=== PATIENT | female | born 1955 | race Caucasian/White ===

== ENCOUNTER 2016-07-31 00:05 | Inpatient (IN) | payer BC, OTHER ==
[~2016-07-31] VITALS: Ht 160 cm; Wt 45.7 kg
[2016-07-31] VITALS (13 sets, daily range): BP systolic 103–140; BP diastolic 74–89
--- NOTE | 2016-07-31 04:45 | ED CLINICAL REPORT ---
Clinical Report - Physicians/Mid Levels [facility] [address] [place] [place] [address] 07/31/2016 0:06 Patient: SETH HERCULES Time Seen: 00:27; initial patient contact. Arrived- By private vehicle. Historian- patient. HISTORY OF PRESENT ILLNESS Chief Complaint: ABDOMINAL PAIN. At its maximum, severity described as moderate. When seen in the E.D., severity described as moderate. Modifying factors. Not worsened by anything. Not relieved by anything. It is described as "pain" and it is described as located in the suprapubic area and radiating to the abdomen. This started yesterday and is still present. It was gradual in onset and has been constant. The patient has had nausea, loss of appetite and vomiting. No diarrhea. Similar symptoms previously: None. Recent medical care: Not recently seen/assessed. REVIEW OF SYSTEMS No constipation, black stools, hematemesis, bloody stools or fever. No chest pain, difficulty breathing or chills. She has had difficulty with urination (Chronic). All systems otherwise negative, except as recorded above. PAST HISTORY Corneal Foreign Body. Immunizations. Weight loss from "bacterial site in lung". Head Injury. ADDITIONAL SURGERIES: Colon resection. Medications: Amitriptyline HCl Oral 50 mg, 3 tabs, at bedtime. Benadryl Oral 25 mg, as needed, allergies. ClonazePAM Oral 1 mg, 4x a day. Potassium Chloride Oral. Allergies: No Known Drug Allergy. SOCIAL HISTORY Current every day smoker. Heavy alcohol use. Patient is a longstanding alcoholic. No drug use. ADDITIONAL NOTES The nursing notes have been reviewed. PHYSICAL EXAM Vital Signs: 07/31/2016 00:15 BP: 103/64. HR: 104. RR: 18. O2 saturation: 96%. Temp: 97.7 F. Pain level now: 9/10. Have been reviewed. Blood pressure normal. Tachycardic. Respiratory rate normal. Temperature normal. Oxygen saturation normal. Appearance: Alert. No acute distress. Eyes: Moderately pale conjunctivae. ENT: Dry mucous membranes present. CVS: Tachycardia. Heart sounds normal. Rhythm normal. Respiratory: No respiratory distress. Breath sounds normal. Abdomen: Moderate tenderness diffusely with guarding and rebound tenderness present. No Tejada's, obturator or psoas sign present. Bowel sounds normal. No organomegaly. No mass. Distention with tenderness to palpation. Not soft. Back: Normal inspection. No CVA tenderness. Rectal: Rectal exam normal and nontender. Stool heme negative; hemoccult quality control tech raw materials check passed. (POC test reference range: negative). (Female RN present for exam). Skin: Poor skin turgor. Moderate pallor. Extremities: Extremities exhibit normal ROM. No lower extremity edema. LABS, X-RAYS, AND EKG EKG: EKG time: (0506). No acute ischemia. Narrow-complex tachycardia (102 ventricular rate). Normal P waves. Normal CAREY. Normal QRS complex. Normal axis. Normal ST and T waves, QT and QTc. Prior EKG unavailable. The study has been interpreted contemporaneously by me. The study has been independently viewed by me. The EKG appears to be a good tracing. Interpretation time: 0506. Abdominal CT: Small amt of pneumpperitoneum concerning for perforated viscus. Moderate ascites w/ enhancement concerning for perotinitis, no abscess visualized. mult segments of mildly dilated small bowel w/ wall thickening. Abdominal CT performed with IV contrast. The study was independently viewed by me, interpreted by the radiologist and discussed with the radiologist. Interpretation time: 03:49. Laboratory Tests: UA-Culture if indicated: (LEXI: 07/31/2016 00:28) ( MsgRcvd 07/31/2016 01:08) Final results Test Result Flag Units (Reference) URINE COLOR YELLOW URINE APPEARANCE CLEAR URINE GLUCOSE NEGATIVE (NEGATIVE) URINE BILIRUBIN NEGATIVE (NEGATIVE) URINE KETONE NEGATIVE (NEGATIVE) URINE SPECIFIC GRAVITY <= 1.005 L (1.010-1.030) URINE PH 8.5 H (5.0-8.0) URINE PROTEIN TRACE (NEGATIVE) URINE UROBILINOGEN 1.0 EU/dL (0.2-1.0) URINE NITRITE NEGATIVE (NEGATIVE) URINE BLOOD NEGATIVE (NEGATIVE) URINE LEUK ESTERASE NEGATIVE (NEGATIVE) URINE RBC 0-1 rbc/hpf (0-1) URINE WBC 0-1 wbc/hpf (0-1) URINE EPITHELIAL CELLS 1-3 EPI/hpf (0-5) URINE BACTERIA NONE SEEN (NONE SEEN) URINE COMMENT CULT NOT INDICATED URINE CULTURES ARE SET-UP BASED ON THE FOLLOWING CRITERIA:POSITIVE NITRITEPOSITIVE LEUKOCYTE ESTERASEGREATER THAN 10 WHITE BLOOD CELLSMODERATE (2+) OR GREATER BACTERIA [id number]: (LEXI: 07/31/2016 00:27) ( [facility] 07/31/2016 03:30) Final results Test Result Flag Units (Reference) ABSOLUTE NEUTROPHIL COUNT 1 /mm3 CBC w Diff: (LEXI: 07/31/2016 00:27) ( [facility] 07/31/2016 01:58) Final results Test Result Flag Units (Reference) WHITE BLOOD COUNT 1.2 *L K/uL (4.5-11.5) CRITICAL RESULTS CALLEDCalled to [facility] 07/31/16 0101Were 2 patient identifiers used? YWas the result read back? Y RED BLOOD COUNT 4.50 M/uL (4.00-5.20) HEMOGLOBIN 14.2 gm/dL (12.0-16.0) HEMATOCRIT 41.5 % (36.0-46.0) MEAN CELL VOLUME 92 fL (80-100) MEAN CORPUSCULAR HGB 32 pg (26-34) MEAN CORPUSCULAR HGB CONC 34 g/dL (31-37) RED CELL DISTRIBUTION WIDTH 19.3 H % (11.6-14.8) PLATELET COUNT 185 K/uL (150-400) POLY % 69 % (50-75) BAND % 0 % (0-8) LYMPH 28 % (25-40) MONO 3 % (3-14) EOSINOPHIL % 0 % (0-4) BASOPHIL % 0 % (0-2) METAMYELOCYTE % 0 % (0-1) MYELOCYTE 0 % (0-1) OTHER CELL TYPE 0 [id number]: (LEXI: 07/31/2016 00:27) ( [facility] 07/31/2016 01:22) Final results Test Result Flag Units (Reference) D-DIMER QUANTITATIVE 6.35 *H ug/mLFEU (0.27-0.52) CRITICAL RESULTS CALLEDCalled to [facility] 07/31/16 0122Were 2 patient identifiers used? YWas the result read back? YThe primary value of this quantitative assay relates toits negative predictive value (i.e. exclusion) of pulmonaryembolism/deep vein thrombosis/DIC.Elevated levels of d-dimer may also occur with:, age, cancer, inflammation, liver disease,post-op, infection, hematoma, coronary disease, peripheralarteriopathy, bleeding disorders and thrombolytic treatment.Results should be correlated with other clinical andradiological data.Testing Methodology: Latex Immunoassay PT with INR: (LEXI: 07/31/2016 00:27) ( [facility] 07/31/2016 00:54) Final results Test Result Flag Units (Reference) INR 1.1 (0.8-1.2) Low Intensity Therapy: INR 1.5-2.0 PT range 18.5-23.1Mod.Intensity Therapy: INR 2.0-3.0 PT range 23.1-31.5High Intensity Therapy: INR 2.5-3.5 PT range 27.4-35.5High Intensity Therapy 2: INR 3.0-4.0 PT range 31.5-39.3 APTT 32 SECONDS (24-34) [id number]: (LEXI: 07/31/2016 04:00) ( [facility] 07/31/2016 05:20) Final results Test Result Flag Units (Reference) LACTIC ACID SEPSIS PROTOCOL 4.4 H mmol/L (0.4-2.0) CRITICAL RESULTS CALLEDCalled to 07/31/16 0520Were 2 patient identifiers used? YWas the result read back? Y [id number]: (LEXI: 07/31/2016 04:10) ( [facility] 07/31/2016 05:06) Final results Test Result Flag Units (Reference) PROCALCITONIN 3.9 H ng/mL (0-0.5) PCT Concentration: Interpretation : Risk/option for action PCT <=0.5 ng/mL : Systemic : Low risk forinfection(sepsis): progression to severeis not likely. : systemic infection.Local bacterial : CAUTION-PCT levelsinfection is : below 0.5 ng/mL do notpossible. : exclude an infection,because localizedinfections (withoutsystemic signs) may beassociated with suchlow levels. If PCT ismeasured very earlyafter a bacterialchallenge (usually <6hours), these valuesmay still be low. Inthis case PCT shouldbe re-assessed 6-24hours later. PCT >0.5 and : Systemic infection: Moderate risk for<= 2 ng/mL : (sepsis) is : progression to severepossible, but : systemic infection.other conditions : The patient should beare known to : closely monitoredelevate PCT. : both clinically andby re-assessing PCTwithin 6-24 hours. PCT > 2 ng/mL : Systemic infection: High risk for(sepsis) is likely: progression to severeunless other : systemic infection.causes are known. : PCT >= 10 ng/mL : Important systemic: High likelihood ofinflammatory : severe sepsis orresponse, almost : septic shock.exclusively due to:severe bacterial :sepsis or septic :shock. : Ethyl Alcohol: (LEXI: 07/31/2016 00:27) ( [facility] 07/31/2016 01:16) Final results Test Result Flag Units (Reference) ETHYL ALCOHOL <3 L mg/dL (3-10) Urine Drug Screen: (LEXI: 07/31/2016 00:27) ( [facility] 07/31/2016 01:17) Final results Test Result Flag Units (Reference) AMPHETAMINE/METHAMPHETAMINE NEGATIVE (NEGATIVE) BARBITURATE NEGATIVE (NEGATIVE) BENZODIAZEPINE NEGATIVE (NEGATIVE) CANNABINOID NEGATIVE (NEGATIVE) COCAINE NEGATIVE (NEGATIVE) ECSTASY NEGATIVE (NEGATIVE) METHADONE NEGATIVE (NEGATIVE) OPIATE NEGATIVE (NEGATIVE) The urine drug screen is a qualitative screening test fordrug overdose and abuse. All screen results should beconsidered as presumptive.Drugs screened for are as follows:BenzodiazepinesCocaineAmphetamines/MetamphetaminesTHC (Tetrahydrocannabinol)OpiatesBarbituratesEcstasyMethadonePositive results are unconfirmed. For confirmation, notifythe lab for the specimen to be sent to the reference lab.All confirmations must be performed by a differentmethodology.The ingestion of natural herbal and plant productscontaining Ephedra/Ephedra metabolites can produce in urineone or more substances capable of cross reacting withamphetamine/methamphetamine immunoassays. These testsprovide a preliminary result only. A more specificalternative chemical method must be used to obtain aconfirmed analytical result. Ammonia Level: (LEXI: 07/31/2016 00:27) ( [facility] 07/31/2016 01:24) Final results Test Result Flag Units (Reference) AMMONIA 22 umol/L (11-32) CMP: (LEXI: 07/31/2016 00:27) ( [facility] 07/31/2016 01:03) Final results Test Result Flag Units (Reference) GLUCOSE 139 H mg/dL (70-110) BUN 11 mg/dL (7-18) CREATININE 1.4 H mg/dL (0.6-1.3) Estimated GFR 40.77 mL/min Estimated GFR- 49.41 mL/min Note: Persistent reduction over 3 months in eGFR<60 mL/min/1.73 m2 defines CKD. Patients with eGFR values>=60 mL/min/1.73 m2 may also have CKD if evidence ofpersistent proteinuria. Additional information may be foundat [email or web address]. SODIUM 132 L mmol/L (136-145) POTASSIUM 2.4 *L mmol/L (3.5-5.1) CRITICAL RESULTS CALLEDCalled to [facility] 07/31/16 0102Were 2 patient identifiers used? YWas the result read back? Y CHLORIDE 91 L mmol/L (98-107) CARBON DIOXIDE 29 mmol/L (21-32) CALCIUM 8.1 L mg/dL (8.5-10.1) TOTAL PROTEIN 6.9 g/dL (6.4-8.2) ALBUMIN 3.1 L g/dL (3.3-5.0) BILIRUBIN, TOTAL 0.6 mg/dL (0.0-1.0) ALKALINE PHOSPHATASE 43 L U/L (46-116) AST (SGOT) 43 H U/L (15-37) ALT (SGPT) 29 U/L (12-78) MAGNESIUM 1.4 L mg/dL (1.8-2.4) LIPASE 56 L U/L (73-393) AMYLASE 73 U/L (25-115) . PROGRESS AND PROCEDURES Critical care performed (75 minutes). Time is exclusive of separately billable procedures. Time includes: direct patient care, patient reassessment, coordination of patient care, interpretation of data (laboratory data), review of patient's medical records, medical consultation, family consultation regarding treatment decisions and documentation of patient care. The patient required critical care due to the acute impairment of vital organ systems (immunologic and hematologic) and a high probability of life threatening deterioration. Multiple urgent interventions were required to prevent life threatening deterioration. Discussed case with health care provider (call returned 04:20 Dr. Jordan, admit to hospitalist and he will take to the OR). Discussed case with hospitalist, (call returned 04:37 Dr. Mercer to admit to ICU.). CLINICAL IMPRESSION Generalized acute peritonitis (unknown etiology). Hypokalemia. Moderate hypomagnesemia. Leukocytopenia. (Pneumoperitoneum). (Electronically signed by Oscar Navarrete Dr. 07/31/2016 7:16)
--- NOTE | 2016-07-31 04:45 | ED CLINICAL REPORT ---
Clinical Report - Physicians/Mid Levels [facility] [address] [place] [place] [address] 07/31/2016 0:06 Patient: SETH HERCULES Time Seen: 00:27; initial patient contact. Arrived- By private vehicle. Historian- patient. HISTORY OF PRESENT ILLNESS Chief Complaint: ABDOMINAL PAIN. At its maximum, severity described as moderate. When seen in the E.D., severity described as moderate. Modifying factors. Not worsened by anything. Not relieved by anything. It is described as "pain" and it is described as located in the suprapubic area and radiating to the abdomen. This started yesterday and is still present. It was gradual in onset and has been constant. The patient has had nausea, loss of appetite and vomiting. No diarrhea. Similar symptoms previously: None. Recent medical care: Not recently seen/assessed. REVIEW OF SYSTEMS No constipation, black stools, hematemesis, bloody stools or fever. No chest pain, difficulty breathing or chills. She has had difficulty with urination (Chronic). All systems otherwise negative, except as recorded above. PAST HISTORY Corneal Foreign Body. Immunizations. Weight loss from "bacterial site in lung". Head Injury. ADDITIONAL SURGERIES: Colon resection. Medications: Amitriptyline HCl Oral 50 mg, 3 tabs, at bedtime. Benadryl Oral 25 mg, as needed, allergies. ClonazePAM Oral 1 mg, 4x a day. Potassium Chloride Oral. Allergies: No Known Drug Allergy. SOCIAL HISTORY Current every day smoker. Heavy alcohol use. Patient is a longstanding alcoholic. No drug use. ADDITIONAL NOTES The nursing notes have been reviewed. PHYSICAL EXAM Vital Signs: 07/31/2016 00:15 BP: 103/64. HR: 104. RR: 18. O2 saturation: 96%. Temp: 97.7 F. Pain level now: 9/10. Have been reviewed. Blood pressure normal. Tachycardic. Respiratory rate normal. Temperature normal. Oxygen saturation normal. Appearance: Alert. No acute distress. Eyes: Moderately pale conjunctivae. ENT: Dry mucous membranes present. CVS: Tachycardia. Heart sounds normal. Rhythm normal. Respiratory: No respiratory distress. Breath sounds normal. Abdomen: Moderate tenderness diffusely with guarding and rebound tenderness present. No Tejada's, obturator or psoas sign present. Bowel sounds normal. No organomegaly. No mass. Distention with tenderness to palpation. Not soft. Back: Normal inspection. No CVA tenderness. Rectal: Rectal exam normal and nontender. Stool heme negative; hemoccult quality control checker check passed. (POC test reference range: negative). (Female RN present for exam). Skin: Poor skin turgor. Moderate pallor. Extremities: Extremities exhibit normal ROM. No lower extremity edema. LABS, X-RAYS, AND EKG EKG: EKG time: (0506). No acute ischemia. Narrow-complex tachycardia (102 ventricular rate). Normal P waves. Normal CAREY. Normal QRS complex. Normal axis. Normal ST and T waves, QT and QTc. Prior EKG unavailable. The study has been interpreted contemporaneously by me. The study has been independently viewed by me. The EKG appears to be a good tracing. Interpretation time: 0506. Abdominal CT: Small amt of pneumpperitoneum concerning for perforated viscus. Moderate ascites w/ enhancement concerning for perotinitis, no abscess visualized. mult segments of mildly dilated small bowel w/ wall thickening. Abdominal CT performed with IV contrast. The study was independently viewed by me, interpreted by the radiologist and discussed with the radiologist. Interpretation time: 03:49. Laboratory Tests: UA-Culture if indicated: (LEXI: 07/31/2016 00:28) ( MsgRcvd 07/31/2016 01:08) Final results Test Result Flag Units (Reference) URINE COLOR YELLOW URINE APPEARANCE CLEAR URINE GLUCOSE NEGATIVE (NEGATIVE) URINE BILIRUBIN NEGATIVE (NEGATIVE) URINE KETONE NEGATIVE (NEGATIVE) URINE SPECIFIC GRAVITY <= 1.005 L (1.010-1.030) URINE PH 8.5 H (5.0-8.0) URINE PROTEIN TRACE (NEGATIVE) URINE UROBILINOGEN 1.0 EU/dL (0.2-1.0) URINE NITRITE NEGATIVE (NEGATIVE) URINE BLOOD NEGATIVE (NEGATIVE) URINE LEUK ESTERASE NEGATIVE (NEGATIVE) URINE RBC 0-1 rbc/hpf (0-1) URINE WBC 0-1 wbc/hpf (0-1) URINE EPITHELIAL CELLS 1-3 EPI/hpf (0-5) URINE BACTERIA NONE SEEN (NONE SEEN) URINE COMMENT CULT NOT INDICATED URINE CULTURES ARE SET-UP BASED ON THE FOLLOWING CRITERIA:POSITIVE NITRITEPOSITIVE LEUKOCYTE ESTERASEGREATER THAN 10 WHITE BLOOD CELLSMODERATE (2+) OR GREATER BACTERIA [id number]: (LEXI: 07/31/2016 00:27) ( [facility] 07/31/2016 03:30) Final results Test Result Flag Units (Reference) ABSOLUTE NEUTROPHIL COUNT 1 /mm3 CBC w Diff: (LEXI: 07/31/2016 00:27) ( [facility] 07/31/2016 01:58) Final results Test Result Flag Units (Reference) WHITE BLOOD COUNT 1.2 *L K/uL (4.5-11.5) CRITICAL RESULTS CALLEDCalled to [facility] 07/31/16 0101Were 2 patient identifiers used? YWas the result read back? Y RED BLOOD COUNT 4.50 M/uL (4.00-5.20) HEMOGLOBIN 14.2 gm/dL (12.0-16.0) HEMATOCRIT 41.5 % (36.0-46.0) MEAN CELL VOLUME 92 fL (80-100) MEAN CORPUSCULAR HGB 32 pg (26-34) MEAN CORPUSCULAR HGB CONC 34 g/dL (31-37) RED CELL DISTRIBUTION WIDTH 19.3 H % (11.6-14.8) PLATELET COUNT 185 K/uL (150-400) POLY % 69 % (50-75) BAND % 0 % (0-8) LYMPH 28 % (25-40) MONO 3 % (3-14) EOSINOPHIL % 0 % (0-4) BASOPHIL % 0 % (0-2) METAMYELOCYTE % 0 % (0-1) MYELOCYTE 0 % (0-1) OTHER CELL TYPE 0 [id number]: (LEXI: 07/31/2016 00:27) ( [facility] 07/31/2016 01:22) Final results Test Result Flag Units (Reference) D-DIMER QUANTITATIVE 6.35 *H ug/mLFEU (0.27-0.52) CRITICAL RESULTS CALLEDCalled to [facility] 07/31/16 0122Were 2 patient identifiers used? YWas the result read back? YThe primary value of this quantitative assay relates toits negative predictive value (i.e. exclusion) of pulmonaryembolism/deep vein thrombosis/DIC.Elevated levels of d-dimer may also occur with:, age, cancer, inflammation, liver disease,post-op, infection, hematoma, coronary disease, peripheralarteriopathy, bleeding disorders and thrombolytic treatment.Results should be correlated with other clinical andradiological data.Testing Methodology: Latex Immunoassay PT with INR: (LEXI: 07/31/2016 00:27) ( [facility] 07/31/2016 00:54) Final results Test Result Flag Units (Reference) INR 1.1 (0.8-1.2) Low Intensity Therapy: INR 1.5-2.0 PT range 18.5-23.1Mod.Intensity Therapy: INR 2.0-3.0 PT range 23.1-31.5High Intensity Therapy: INR 2.5-3.5 PT range 27.4-35.5High Intensity Therapy 2: INR 3.0-4.0 PT range 31.5-39.3 APTT 32 SECONDS (24-34) [id number]: (LEXI: 07/31/2016 04:00) ( [facility] 07/31/2016 05:20) Final results Test Result Flag Units (Reference) LACTIC ACID SEPSIS PROTOCOL 4.4 H mmol/L (0.4-2.0) CRITICAL RESULTS CALLEDCalled to 07/31/16 0520Were 2 patient identifiers used? YWas the result read back? Y [id number]: (LEXI: 07/31/2016 04:10) ( [facility] 07/31/2016 05:06) Final results Test Result Flag Units (Reference) PROCALCITONIN 3.9 H ng/mL (0-0.5) PCT Concentration: Interpretation : Risk/option for action PCT <=0.5 ng/mL : Systemic : Low risk forinfection(sepsis): progression to severeis not likely. : systemic infection.Local bacterial : CAUTION-PCT levelsinfection is : below 0.5 ng/mL do notpossible. : exclude an infection,because localizedinfections (withoutsystemic signs) may beassociated with suchlow levels. If PCT ismeasured very earlyafter a bacterialchallenge (usually <6hours), these valuesmay still be low. Inthis case PCT shouldbe re-assessed 6-24hours later. PCT >0.5 and : Systemic infection: Moderate risk for<= 2 ng/mL : (sepsis) is : progression to severepossible, but : systemic infection.other conditions : The patient should beare known to : closely monitoredelevate PCT. : both clinically andby re-assessing PCTwithin 6-24 hours. PCT > 2 ng/mL : Systemic infection: High risk for(sepsis) is likely: progression to severeunless other : systemic infection.causes are known. : PCT >= 10 ng/mL : Important systemic: High likelihood ofinflammatory : severe sepsis orresponse, almost : septic shock.exclusively due to:severe bacterial :sepsis or septic :shock. : Ethyl Alcohol: (LEXI: 07/31/2016 00:27) ( [facility] 07/31/2016 01:16) Final results Test Result Flag Units (Reference) ETHYL ALCOHOL <3 L mg/dL (3-10) Urine Drug Screen: (LEXI: 07/31/2016 00:27) ( [facility]17[facility] Final results Test Result Flag Units (Reference) AMPHETAMINE/METHAMPHETAMINE NEGATIVE (NEGATIVE) BARBITURATE NEGATIVE (NEGATIVE) BENZODIAZEPINE NEGATIVE (NEGATIVE) CANNABINOID NEGATIVE (NEGATIVE) COCAINE NEGATIVE (NEGATIVE) ECSTASY NEGATIVE (NEGATIVE) METHADONE NEGATIVE (NEGATIVE) OPIATE NEGATIVE (NEGATIVE) The urine drug screen is a qualitative screening test fordrug overdose and abuse. All screen results should beconsidered as presumptive.Drugs screened for are as follows:BenzodiazepinesCocaineAmphetamines/MetamphetaminesTHC (Tetrahydrocannabinol)OpiatesBarbituratesEcstasyMethadonePositive results are unconfirmed. For confirmation, notifythe lab for the specimen to be sent to the reference lab.All confirmations must be performed by a differentmethodology.The ingestion of natural herbal and plant productscontaining Ephedra/Ephedra metabolites can produce in urineone or more substances capable of cross reacting withamphetamine/methamphetamine immunoassays. These testsprovide a preliminary result only. A more specificalternative chemical method must be used to obtain aconfirmed analytical result. Ammonia Level: (LEXI: 07/31/2016 00:27) ( [facility] 07/31/2016 01:24) Final results Test Result Flag Units (Reference) AMMONIA 22 umol/L (11-32) CMP: (LEXI: 07/31/2016 00:27) ( [facility] 07/31/2016 01:03) Final results Test Result Flag Units (Reference) GLUCOSE 139 H mg/dL (70-110) BUN 11 mg/dL (7-18) CREATININE 1.4 H mg/dL (0.6-1.3) Estimated GFR 40.77 mL/min Estimated GFR- 49.41 mL/min Note: Persistent reduction over 3 months in eGFR<60 mL/min/1.73 m2 defines CKD. Patients with eGFR values>=60 mL/min/1.73 m2 may also have CKD if evidence ofpersistent proteinuria. Additional information may be foundat [email or web address]. SODIUM 132 L mmol/L (136-145) POTASSIUM 2.4 *L mmol/L (3.5-5.1) CRITICAL RESULTS CALLEDCalled to [facility] 07/31/16 0102Were 2 patient identifiers used? YWas the result read back? Y CHLORIDE 91 L mmol/L (98-107) CARBON DIOXIDE 29 mmol/L (21-32) CALCIUM 8.1 L mg/dL (8.5-10.1) TOTAL PROTEIN 6.9 g/dL (6.4-8.2) ALBUMIN 3.1 L g/dL (3.3-5.0) BILIRUBIN, TOTAL 0.6 mg/dL (0.0-1.0) ALKALINE PHOSPHATASE 43 L U/L (46-116) AST (SGOT) 43 H U/L (15-37) ALT (SGPT) 29 U/L (12-78) MAGNESIUM 1.4 L mg/dL (1.8-2.4) LIPASE 56 L U/L (73-393) AMYLASE 73 U/L (25-115) . PROGRESS AND PROCEDURES Critical care performed (75 minutes). Time is exclusive of separately billable procedures. Time includes: direct patient care, patient reassessment, coordination of patient care, interpretation of data (laboratory data), review of patient's medical records, medical consultation, family consultation regarding treatment decisions and documentation of patient care. The patient required critical care due to the acute impairment of vital organ systems (immunologic and hematologic) and a high probability of life threatening deterioration. Multiple urgent interventions were required to prevent life threatening deterioration. Discussed case with health care provider (call returned 04:20 Dr. Jordan, admit to hospitalist and he will take to the OR). Discussed case with hospitalist, (call returned 04:37 Dr. Mercer to admit to ICU.). CLINICAL IMPRESSION Generalized acute peritonitis (unknown etiology). Hypokalemia. Moderate hypomagnesemia. Leukocytopenia. (Pneumoperitoneum). (Electronically signed by Oscar Navarrete Dr. 07/31/2016 7:16)
--- NOTE | 2016-07-31 04:45 | ED ORDER SUMMARY ---
..... Patient: SETH HERCULES OrderSheet [facility] VisitID: [id number] [place] [address] 60y, F Registration Date/Time: 07/31/2016 ORDER SHEET Weight: 45.3 kg (stated) Allergies: No Known Drug Allergy GENERAL ORDERS: CBC w Diff Urgent (00:39 07/31/2016 Enoc Gaona) (Ack 0:45 AMcQuoid ER Tech1) (0:46 AMcQuoid ER Tech1) CMP Urgent (00:39 07/31/2016 Enoc Gaona) (Ack 0:45 AMcQuoid ER Tech1) (0:46 AMcQuoid ER Tech1) UA-Culture if indicated Urgent (00:07/31/2016 Enoc Gaona) (Ack 0:45 AMcQuoid ER Tech1) (0:52 CBradburn R.N.) PT with INR Urgent (00:39 07/31/2016 Enoc Gaona) (Ack 0:45 AMcQuoid ER Tech1) (0:46 AMcQuoid ER Tech1) PTT Urgent (00:39 07/31/2016 Enoc Gaona) (Ack 0:45 AMcQuoid ER Tech1) (0:46 AMcQuoid ER Tech1) Amylase Urgent (00:39 07/31/2016 Enoc Gaona) (Ack 0:45 AMcQuoid ER Tech1) (0:46 AMcQuoid ER Tech1) Lipase Urgent (00:07/31/2016 Enoc Gaona) (Ack 0:45 AMcQuoid ER Tech1) (0:46 AMcQuoid ER Tech1) Urine Drug Screen Urgent (00:39 07/31/2016 Enoc Gaona) (Ack 0:45 AMcQuoid ER Tech1) (0:52 CBradburn R.N.) Ammonia Level Urgent (00:39 07/31/2016 Enoc Gaona) (Ack 0:45 AMcQuoid ER Tech1) (0:46 AMcQuoid ER Tech1) D-Dimer Urgent (00:55 07/31/2016 Enoc Gaona) (0:58 AMcQuoid ER Tech1) Ethyl Alcohol Urgent (00:57 07/31/2016 Enoc Gaona) (Ack 0:58 AMcQuoid ER Tech1) (0:59 AMcQuoid ER Tech1) CTA Thorax/Abdomen/Pelvis (No) (12/10.4) Urgent (01:41 07/31/2016 Enoc Gaona) (Ack 1:56 AMcQuoid ER Tech1) (2:07 OCRINAradburn R.N.) - (Absolute neutrophil count) (03:19 07/31/2016 Enoc Gaona) (3:23 AMcQuoid ER Tech1) Blood Culture (No) (N/A) Urgent (03:41 07/31/2016 Enoc Gaona) (Ack 3:42 AMcQuoid ER Tech1) (4:28 CORINAradburn R.N.) Lactic Acid for Sepsis Protocol Urgent (03:41 07/31/2016 Enoc Gaona) (Ack 3:42 AMcQuoid ER Tech1) (4:28 CORINAradburn R.N.) PCT (Procalcitonin) Urgent (03:41 07/31/2016 Enoc Gaona) (Ack 3:42 AMcQuoid ER Tech1) (4:28 CORINAradburn R.N.) Type & Screen Urgent (04:49 07/31/2016 Enoc Gaona) (4:56 Lavon R.N.) EKG - ER Stat (04:49 07/31/2016 Enoc Gaona) (5:26 RKaruga) MEDICATION ORDERS: Potassium Chloride PO 20 meq (NOW) (01:13 07/31/2016 Enoc Gaona) (Ack 1:16 Maria Teresaburn R.N.) (2:00 Maria Teresaburn R.N.) - (Magnesium Oxide 400 mg PO x 1 now) (01:13 07/31/2016 Enoc Gaona) (Ack 1:16 Lavon R.N.) (2:07 CORINAradburn R.N.) IV FLUIDS: IV NS : initial bolus none -, then 1000 mL/hr for X1 (NOW) (00:38 07/31/2016 Enoc Gaona) (Ack 0:43 Odette R.N.) (0:53 Lavon R.N.) Potassium Chloride IV 20 meq/100mL (HIGH ALERT MEDICATION, NOW, Run no faster than 10 mEq/hr) (01:13 07/31/2016 Enoc Gaona) (Ack 1:16 Lavon Singh) (1:59 Lavon Singh) IV#2 NS with Normal Saline 1 Liter: initial bolus 1000 mL (1000 mL/hr), then 1000 mL/hr (NOW) (03:24 07/31/2016 Lavon Singh verbal order read back to Enoc Gaona) (3:26 Lavon Singh) Cefotaxime IV 2 gm/100mL (NOW) (04:00 07/31/2016 Enoc Gaona) (Cancelled: Physician Order4:49 Enoc Gaona) Metronidazole IV 500 mg/100mL (NOW) (04:00 07/31/2016 Enoc Gaona) (4:27 Lavon Singh) Cefepime IV 2 gm/50mL (NOW) (04:47 07/31/2016 Enoc Gaona) (5:28 Lavon Singh) IV NS : initial bolus none -, then 1000 mL/hr for X1 (NOW) (04:51 07/31/2016 Enoc Gaona) (4:55 Lavon Singh) ORDER SHEET NOTES: [Electronically signed by Dinorah Connelly R.N. (06:52 07/31/2016)] [Electronically signed by Oscar Navarrete Dr. (07:16 07/31/2016)] [Electronically locked/signed by Dinorah Connelly R.N. (06:52 07/31/2016)]
--- NOTE | 2016-07-31 04:45 | ED ORDER SUMMARY ---
..... Patient: SETH HERCULES OrderSheet [facility] VisitID: [id number] [place] [address] 60y, F Registration Date/Time: 07/31/2016 ORDER SHEET Weight: 45.3 kg (stated) Allergies: No Known Drug Allergy GENERAL ORDERS: CBC w Diff Urgent (00:39 07/31/2016 Enoc Gaona) (Ack 0:45 AMcQuoid ER Tech1) (0:46 AMcQuoid ER Tech1) CMP Urgent (00:39 07/31/2016 Enoc Gaona) (Ack 0:45 AMcQuoid ER Tech1) (0:46 AMcQuoid ER Tech1) UA-Culture if indicated Urgent (00:07/31/2016 Enoc Gaona) (Ack 0:45 AMcQuoid ER Tech1) (0:52 CBradburn R.N.) PT with INR Urgent (00:39 07/31/2016 Enoc Gaona) (Ack 0:45 AMcQuoid ER Tech1) (0:46 AMcQuoid ER Tech1) PTT Urgent (00:39 07/31/2016 Enoc Gaona) (Ack 0:45 AMcQuoid ER Tech1) (0:46 AMcQuoid ER Tech1) Amylase Urgent (00:39 07/31/2016 Enoc Gaona) (Ack 0:45 AMcQuoid ER Tech1) (0:46 AMcQuoid ER Tech1) Lipase Urgent (00:07/31/2016 Enoc Gaona) (Ack 0:45 AMcQuoid ER Tech1) (0:46 AMcQuoid ER Tech1) Urine Drug Screen Urgent (00:39 07/31/2016 Enoc Gaona) (Ack 0:45 AMcQuoid ER Tech1) (0:52 CBradburn R.N.) Ammonia Level Urgent (00:39 07/31/2016 Enoc Gaona) (Ack 0:45 AMcQuoid ER Tech1) (0:46 AMcQuoid ER Tech1) D-Dimer Urgent (00:55 07/31/2016 Enoc Gaona) (0:58 AMcQuoid ER Tech1) Ethyl Alcohol Urgent (00:57 07/31/2016 Enoc Gaona) (Ack 0:58 AMcQuoid ER Tech1) (0:59 AMcQuoid ER Tech1) CTA Thorax/Abdomen/Pelvis (No) (12/10.4) Urgent (01:41 07/31/2016 Enoc Gaona) (Ack 1:56 AMcQuoid ER Tech1) (2:07 CORINAradburn R.N.) - (Absolute neutrophil count) (03:19 07/31/2016 Enoc Gaona) (3:23 AMcQuoid ER Tech1) Blood Culture (No) (N/A) Urgent (03:41 07/31/2016 Enoc Gaona) (Ack 3:42 AMcQuoid ER Tech1) (4:28 CORINAradburn R.N.) Lactic Acid for Sepsis Protocol Urgent (03:41 07/31/2016 Enoc Gaona) (Ack 3:42 AMcQuoid ER Tech1) (4:28 CORINAradburn R.N.) PCT (Procalcitonin) Urgent (03:41 07/31/2016 Enoc Gaona) (Ack 3:42 AMcQuoid ER Tech1) (4:28 CORINAradburn R.N.) Type & Screen Urgent (04:49 07/31/2016 Enoc Gaona) (4:56 Lavon R.N.) EKG - ER Stat (04:49 07/31/2016 Enoc Gaona) (5:26 RKaruga) MEDICATION ORDERS: Potassium Chloride PO 20 meq (NOW) (01:13 07/31/2016 Enoc Gaona) (Ack 1:16 Maria Teresaburn R.N.) (2:00 Maria Teresaburn R.N.) - (Magnesium Oxide 400 mg PO x 1 now) (01:13 07/31/2016 Enoc Gaona) (Ack 1:16 Lavon R.N.) (2:07 CORINAradburn R.N.) IV FLUIDS: IV NS : initial bolus none -, then 1000 mL/hr for X1 (NOW) (00:38 07/31/2016 Enoc Gaona) (Ack 0:43 Odette R.N.) (0:53 Lavon R.N.) Potassium Chloride IV 20 meq/100mL (HIGH ALERT MEDICATION, NOW, Run no faster than 10 mEq/hr) (01:13 07/31/2016 Enoc Gaona) (Ack 1:16 Lavon Singh) (1:59 Lavon Singh) IV#2 NS with Normal Saline 1 Liter: initial bolus 1000 mL (1000 mL/hr), then 1000 mL/hr (NOW) (03:24 07/31/2016 Lavon Singh verbal order read back to Enoc Gaona) (3:26 Lavon Singh) Cefotaxime IV 2 gm/100mL (NOW) (04:00 07/31/2016 Enoc Gaona) (Cancelled: Physician Order4:49 Enoc Gaona) Metronidazole IV 500 mg/100mL (NOW) (04:00 07/31/2016 Enoc Gaona) (4:27 Lavon Singh) Cefepime IV 2 gm/50mL (NOW) (04:47 07/31/2016 Enoc Gaona) (5:28 Lavon Singh) IV NS : initial bolus none -, then 1000 mL/hr for X1 (NOW) (04:51 07/31/2016 Enoc Gaona) (4:55 Lavon Singh) ORDER SHEET NOTES: [Electronically signed by Dinorah Connelly R.N. (06:52 07/31/2016)] [Electronically signed by Oscar Navarrete Dr. (07:16 07/31/2016)] [Electronically locked/signed by Dinorah Connelly R.N. (06:52 07/31/2016)]
--- NOTE | 2016-07-31 04:45 | ED NURSING NOTES ---
Clinical Report - Nurses [facility] [address] [place] [address] 07/31/2016 0:06 Patient: SETH HERCULES TRIAGE Triage time 00:15. Acuity: LEVEL 3. Chief Complaint: ABDOMINAL PAIN and VOMITING. --00:24 Dinorah Connelly R.N. 00:15 07/31/16. BP: 103/64 taken on the left arm, while sitting. HR: 104 (regular and tachycardic). RR: 18 (regular and unlabored). O2 saturation: 96% on room air. Temp: 97.7 F (oral). Pain level now: 10/19. --00:24 Dinorah Connelly R.N. Weight: 45.3 kg stated. Height/Length: 63 inches Per Patient. BMI: 17.7. --00:15 Dinorah Connelly R.N. Medications Amitriptyline HCl Oral 50 mg, 3 tabs, at bedtime. Benadryl Oral 25 mg, as needed, allergies. ClonazePAM Oral 1 mg, 4x a day. Potassium Chloride Oral. --00:17 Dinorah Connelly R.N. The following entry was struck and corrected by Dinorah Connelly R.N., 00:18 (07/31/16) Reason for correction - other(correction). <<STRICKEN ENTRY-- Amitriptyline HCl Oral 50 mg, 2 tabs, at bedtime. --00:17 Dinorah Connelly R.N. --END STRIKE>>. Allergies No Known Drug Allergy. --00:17 Dinorah Connelly R.N. History Arrived by private vehicle. Historian: patient. Accompanied by family. Primary physician (anita). This started today. Onset. (this morning). ( pain all day started as suprapubic and now all over, pt reports vomited 1 time today. oral mucosa dry). Last oral intake by patient was lunch (/2 sandwich). PAST MEDICAL HX: Immunizations: up-to-date. SOCIAL HX: Light tobacco smoker (cigarette)- less than 1/2 a pack per day. Heavy alcohol use; consumes beer daily. Patient is a longstanding alcoholic. No drug use. No known contact with a sick individual. ABUSE ASSESSMENT: No report of abuse. SELF HARM ASSESSMENT: A self harm assessment was performed. The patient answered "no" to the question "Have you recently felt down, depressed, or hopeless?", "Have you noticed less interest or pleasure in doing things?", "Do you have thoughts of harming or killing yourself?", "Are you here because you tried to hurt yourself?", "Have you ever tried to hurt yourself before today?", "Have you recently had thoughts about harming or killing others?" and "Do you have any dangerous items in your possession?". FALL RISK ASSESSMENT: Fall risk assessment completed. No fall risk identified. NUTRITIONAL RISK ASSESSMENT: The nutritional risk assessment revealed no deficiencies. FUNCTIONAL ASSESSMENT: Functional assessment: no impairments noted. LEARNING NEEDS ASSESSMENT: The learning needs assessment revealed no barriers. SKIN INTEGRITY ASSESSMENT: Skin integrity risk assessment completed. No skin integrity risk identified. --00:24 Dinorah Connelly R.N. PROBLEMS: Corneal Foreign Body. Immunizations. Weight loss from "bacterial site in lung". Head Injury. --00:18 Dinorah Connelly R.N. ADDITIONAL SURGERIES: Colon resection. --00:18 Dinorah Connelly R.N. Interventions ID band on patient. To treatment room. --00:24 Dinorah Connelly R.N. PHYSICAL ASSESSMENT To room via wheelchair. GENERAL / NEURO / PSYCH: Alert. Appears anxious. The patient is disoriented to person, place and situation. ( normal baseline). HEENT: Mucous membranes are dry and pale. Mucous membranes are pink. RESPIRATORY: Respirations not labored. Breath sounds within normal limits. CVS: Normal sinus rhythm noted. Capillary refill less than 2 seconds. GI / : Emesis noted. Has vomited once. Abdominal tenderness in the suprapubic area. Guarding present. Guarding present in the suprapubic area and lower abdomen. No obesity. No abdominal distention or diarrhea. No blood in the stool. ( c/o painful urination). SKIN: Skin is pale. Skin is warm and dry. --00:27 Dinorah Connelly R.N. NURSING PROGRESS NOTES patient monitor, pulse oximeter and NIBP monitor placed on patient; quality assurance monitor chassis- Lead II; monitor alarms on. Two patient identifiers checked. Call light placed in reach. Side rails up x 1. Bed placed in lowest position. Brakes of bed on. Patient ready for evaluation- chart flagged. --00:27 Dinorah Connelly R.N. 00:27 07/31/2016 Site #1 started via IV in the right antecubital space with an 20g angiocath, with aseptic technique and good blood return; one attempt. Blood drawn: rainbow set. Labeled in the presence of the patient and sent to the lab. Saline lock flushed with 10 mL saline. --00:27 Dinorah Connelly R.N. ( pt ambulated to for urine same with assistance). --00:33 Dinorah Connelly R.N. Patient ID band checked for patient name and birthdate: patient confirmed. Instructions provided to collect clean catch urine and patient verbalized understanding. Clean catch urine collected with return of day-colored clear urine; sample sent to lab for urinalysis, culture and drug screen. Specimen labeled in the presence of the patient. --00:36 Dinorah Connelly R.N. 00:48 07/31/2016 Started bag #1 1000 mL IV Fluids IV NS (Saline); at 1000 mL/hr over 1 hour(s) via site #1 via IV pump. Allergies verified and confirmed 5 rights. --00:53 Dinorah Connelly R.N. Critical value relayed to ED by Lab. Critical value received by Dinorah LLAMAS. WBC: 1.2. K: 2.4. Critical value read back. ED physician notifed of critical value (Dr. Navarrete). Orders were not received. --01:02 Dinorah Connelly R.N. late entry - 01:40 07/31/16. Critical value relayed to ED by Lisa. Critical value received by FARHAD Gambino. DDimer 6.35. Critical value read back. Verified lab result and patient ID. ED physician notifed of critical value. --01:59 Maki Burns R.N. 01:45 07/31/2016 Started bag #1 1000 mL IV Fluids IV#2 NS (Saline); bolus of 1000 mL wide open then over 1 hour(s) via site #1. Allergies verified and confirmed 5 rights. IV patency established. IV site checked: no pain, redness, or swelling. IV flushed thoroughly pre- and post-medication administration. --03:26 Dinorah Connelly R.N. 01:52 07/31/2016 Started 20 meq of Potassium Chloride (Potassium Chloride) IVPB in bag #1 100 mL; at 50 mL/hr over 2 hour(s) via site #1 via IV pump. Allergies verified and confirmed 5 rights. IV patency established. IV site checked: no pain, redness, or swelling. IV flushed thoroughly pre- and post-medication administration. --01:59 Dinorah Connelly R.N. 01:52 07/31/2016 IV Fluids IV NS Discontinued: bag #1 completed. Total amount infused: 1000 mL. IV patency established. IV site checked: no pain, redness, or swelling. IV flushed thoroughly. --02:00 Dinorah Connelly R.N. 01:54 07/31/2016 Potassium Chloride (Potassium Chloride ER) PO Tablets 20 meq given. Allergies verified and confirmed 5 rights. --02:00 Dinorah Connelly R.N. 01:54 07/31/2016 Magnesium Oxide 400mg * PO 400 mg --02:07 Dinorah Connelly R.N. Patient transported to DC by stretcher with tech. (02:05). --02:08 Dinorah Connelly R.N. 02:00 07/31/16. BP: 112/66 taken while lying. HR: 102 (regular and tachycardic). RR: 18 (regular and unlabored). O2 saturation: 100% on room air. Temp: deferred. Pain level now: 06/18. --02:09 Dinorah Connelly R.N. Overall patient status is the same- she states feels the same. GI / : The patient reports abdominal pain. Abdomen soft. Bowel sounds within normal limits. --02:09 Dinorah Connelly R.N. Patient returned from CT by stretcher with tech. (02:34). --02:34 Dinorah Connelly R.N. 02:43 07/31/16. BP: 131/72 taken on the left arm. HR: 104 (regular). RR: 14 (regular and unlabored). O2 saturation: 99% on room air. Temp: deferred. Pain level now: 06/18. --02:48 Dinorah Connelly R.N. patient monitor, pulse oximeter and NIBP monitor placed on patient; quality assurance monitor chassis- Lead II; monitor alarms on. Reassurance given to the patient. ( pt placed on BP, voided 120 ml urine with difficulty, pt states has hard time voiding lately. Pt A&Ox3 with periods of forgetfulness. MD aware.). GI / : Abdominal tenderness in the suprapubic area and lower abdomen. Guarding present. Bowel sounds within normal limits. SKIN: Skin is prominently pale. Two patient identifiers checked. Call light placed in reach. Side rails up x 2. Bed placed in lowest position. Brakes of bed on. --02:48 Dinorah Connelly R.N. 03:16 Patient 275 mL urine per bed bad. --03:17 McQuoid, Day, ER Tech1 03:26 07/31/2016 IV Fluids IV#2 NS Discontinued: bag #2 completed upon discharge. Total amount infused: 1000 mL. IV patency established. IV site checked: no pain, redness, or swelling. IV flushed thoroughly. --03:26 Dinorah Connelly R.N. 04:05 07/31/2016 Site #2 started via IV in the left upper arm with an 18g angiocath, with aseptic technique and good blood return; one attempt. Blood drawn: cultures x1. Saline lock flushed with 10 mL saline. --04:28 Dinorah Connelly R.N. 04:25 07/31/2016 Potassium Chloride IVPB Discontinued: completed. Total amount infused: 100 mL. IV patency established. IV site checked: no pain, redness, or swelling. IV flushed thoroughly. --04:25 Dinorah Connelly R.N. 04:27 07/31/2016 Started 500 mg of Metronidazole IVPB in bag #1 100 mL; over 1 hour(s) via site #1 via IV pump. Allergies verified and confirmed 5 rights. IV patency established. IV site checked: no pain, redness, or swelling. IV flushed thoroughly pre- and post-medication administration. --04:27 Dinorah Connelly R.N. 04:31 07/31/16. BP: 97/67 taken on the left arm, while lying. HR: 105 (regular and tachycardic). RR: 20 (regular and unlabored). O2 saturation: 99% on room air. Temp: deferred. Pain level now: 05/19. --04:32 Dinorah Connelly R.N. ( pt anxious repositioned in bed for comfort, VSS. will continue to monitor). Two patient identifiers checked. Call light placed in reach. Side rails up x 2. Bed placed in lowest position. Brakes of bed on. --04:32 Dinorah Connelly R.N. patient monitor, pulse oximeter and NIBP monitor placed on patient; quality assurance monitor chassis- Lead II. 14 fr kim catheter placed. Reason for indwelling catheter: critical need to monitor intake and output. During procedure hand hygiene observed and sterile equipment and aseptic technique used. Return of 250 mL day-colored urine; attached to bedside drainage bag positioned below the bladder and secured with stabilization device. She tolerated procedure fair (0415). --04:34 Dinorah Connelly R.N. 04:55 07/31/2016 Started bag #1 1000 mL IV Fluids IV NS (Saline); at 1000 mL/hr over 1 hour(s) via site #1. Allergies verified and confirmed 5 rights. IV patency established. IV site checked: no pain, redness, or swelling. IV flushed thoroughly pre- and post-medication administration. --04:55 Dinorah Connelly R.N. Two patient identifiers checked. Call light placed in reach. Side rails up x 2. Bed placed in lowest position. Brakes of bed on. --04:58 Dinorah Connelly R.N. 04:57 07/31/16. BP: 101/65 taken on the left arm, while lying. HR: 102 (regular and tachycardic). RR: 18 (regular and unlabored). O2 saturation: 99% on room air. Temp: deferred. Pain level now: 04/18. --04:58 Dinorah Connelly R.N. 05:27 07/31/2016 Metronidazole IVPB Discontinued: completed. Total amount infused: 100 mL. IV patency established. IV site checked: no pain, redness, or swelling. IV flushed thoroughly. --05:27 Dinorah Connelly R.N. EKG time: (5:06). EKG was performed by a tech and shown to the ED physician. --05:27 Margret Hagen 05:28 07/31/2016 Started 2 gm of Cefepime IVPB in bag #1 50 mL; at 140 mL/hr over 30 minute(s) via site #1 via IV pump. Allergies verified and confirmed 5 rights. IV patency established. IV site checked: no pain, redness, or swelling. IV flushed thoroughly pre- and post-medication administration. --05:28 Dinorah Connelly R.N. 05:28 07/31/16. BP: 91/56. HR: 102 (regular and tachycardic). RR: 18 (regular and unlabored). O2 saturation: 96% on room air. Temp: 97.8 F (oral). Pain level now: 03/21. --05:33 Dinorah Connelly R.N. 05:48 07/31/16. BP: 101/62 taken on the left arm, while lying. HR: 101 (regular and tachycardic). RR: 18 (regular and unlabored). O2 saturation: 98% on room air. Temp: deferred. Pain level now: 03/21. --05:49 Dinorah Connelly R.N. Overall patient status is the same- she states feels the same. ( Dr. Mercer at bedside). --05:49 Dinorah Connelly R.N. Two patient identifiers checked. Call light placed in reach. Side rails up x 2. Bed placed in lowest position. Brakes of bed on. --05:50 Dinorah Connelly R.N. 05:50 07/31/2016 IV Fluids IV NS Discontinued: completed. Total amount infused: 1000 mL. IV patency established. IV site checked: no pain, redness, or swelling. IV flushed thoroughly. --05:50 Dinorah Connelly R.N. 05:51 07/31/2016 Cefepime IVPB Discontinued: completed. Total amount infused: 50 mL. IV patency established. IV site checked: no pain, redness, or swelling. IV flushed thoroughly. --05:51 Dinorah Connelly R.N. ( pt continues to be very restless, pt repositioned for comfort. Dr. Jordan in to Eval). --06:17 Dinorah Connelly R.N. 06:50 07/31/2016 Site #[address] upon admission; patent, no pain and no signs of infection or infiltration. Good blood return present. Converted to saline lock and flushed with 10 mL saline; flushes easily. --06:50 Dinorah Connelly R.N. 06:50 07/31/2016 Site #[address] upon admission; patent, no pain and no signs of infection or infiltration. Good blood return present. Flushed with 10 mL saline; flushes easily. --06:50 Dinorah Connelly R.N. Intake & Output Urine: 120 mL voided. --02:42 Dinorah Connelly R.N. Urine: 900 mL, with return of yellow-colored clear urine; attached to bedside drainage bag. --05:35 Dinorah Connelly R.N. DISPOSITION / DISCHARGE Departure time: 06:50. Transported via stretcher by nurse with IV. Report was given to a nurse. Report included patient's care, treatment, medications, reviewed medication reconcilliation, and condition (including any recent changes or anticipated changes). All questions were answered. Report was acknowledged and care was transferred. ( pt transported to OR by OR nurse, report given to RN). Patient's personal items; items were placed in belongings bag and transported with the patient. --06:52 Dinorah Connelly R.N. 06:51 07/31/16. BP: 98/70. HR: 104 (regular and tachycardic). RR: 18. O2 saturation: 100%. Temp: deferred. Pain level now: 05/19. --06:52 Dinorah Connelly R.N. Locked/Released at 07/31/2016 6:52 by Dinorah Connelly R.N.
--- NOTE | 2016-07-31 06:00 | DIAGNOSTIC IMAGING REPORT ---
PROCEDURE: CTA THORAX ABDOMEN PELVIS INDICATION: Chest and left abdominal pain. Elevated D-dimer. Assess for dissection. TECHNIQUE: 125 ml of Isovue 370 injected intravenously and axial images were obtained of the entire thorax, abdomen, and pelvis with 3D MIP sagittal and coronal reformations. Preliminary report provided by Chrissie Pierre MD ([facility]). COMPARISON: Comparison is made to CT abdomen and pelvis on 11/25/[address] thorax (08/26/2013). FINDINGS: THORAX VASCULAR: Thorax vascular: Pulmonary vessels are normal and there is no evidence of pulmonary embolus. There are mild calcified atheromatous changes aorta, but no evidence of dissection or aneurysm. THORAX: Pulmonary hyperexpansion and chronic obstructive pulmonary disease. There is mild to moderate bibasilar parenchymal scarring. There has been resolution of lung nodule at the right lung base. There is moderate mucosal thickening throughout the esophagus. Heart and mediastinum are normal size. ABDOMEN VASCULAR: There are marked calcified atheromatous changes of the aorta with minimal ectasia of the lower abdominal aorta. No evidence of aneurysm or dissection. Superior mesenteric artery and celiac axis are normal. Renal vessels appear normal. No evidence of embolism. Portal, mesenteric, and venous structures appear normal. ABDOMEN: There is moderate partially loculated fluid in the bilateral gutters, left upper quadrant, with a small amount of free fluid and air ventral to the liver. There are edematous loops of moderately dilated small bowel. Gallbladder is normal. Moderate generalized fatty infiltration of the liver. Spleen (7.5 cm), pancreas, kidneys are normal. PELVIS VASCULAR: Marked calcified atheromatous changes of the common iliac vessels with calcifications of the distal iliac and femoral vessels. No evidence of dissection. PELVIS: There are postoperative changes with surgical mesh in the region of the sigmoid colon (suggest partial colectomy). There are marked inflammatory changes in the region of the sigmoid colon with moderate proteinaceous free fluid mixed with air in the cul-de-sac. There is a small amount of free intraperitoneal air. Status post hysterectomy. IMPRESSION: CT ANGIOGRAM THORAX: 1. No evidence of pulmonary embolus. 2. No evidence of dissection or aneurysm. CT THORAX: 1. Chronic obstructive pulmonary disease. 2. Moderate mucosal thickening of the esophagus consistent with reflux esophagitis. CT ANGIOGRAM ABDOMEN: 1. Marked calcified atheromatous changes of the aorta. No evidence of aneurysm or dissection. 2. Normal renal and mesenteric vessels. CT ABDOMEN: 1. Moderate loculated fluid in the lateral gutters, and left upper quadrant with small amount of free air. Associated edematous small bowel loops. 3. Moderate fatty infiltration of the liver. CT ANGIOGRAM PELVIS: 1. Marked calcified atheromatous changes of the common iliac arteries with probable iliac stenosis (calcifications obscured detail). CT PELVIS: 1. Marked inflammatory changes of the sigmoid suggest sigmoid perforation. Status post partial sigmoid colectomy. 2. Associated moderate loculated and proteinaceous fluid in the pelvis mixed with extraluminal air. 3. Status post hysterectomy. The findings were discussed with Dr. Oscar Navarrete and called to Dr. Jordan. All CT scans at this facility use dose modulation, iterative reconstruction, and/or weight-based dosing when appropriate to reduce radiation dose to as low as reasonably achievable.
--- NOTE | 2016-07-31 06:30 | History & Physical Report ---
Information Source Information Source: Self Reliability: Poor History Chief Complaint Abdominal pain History of Present Illness Patient is a 60-year-old female is presenting with abdominal pain. Patient is a very poor story in and cannot maintain a proper train of thought therefore her history is most likely inaccurate. Patient claims that she has had abdominal distention for the past months she claims 2 months total. She claims that it's been happening very slowly and that her pants are becoming exceedingly tight over this period of time. Patient claims that in the past 2 or 3 days she had a sudden onset of abdominal pain. Patient feels like the pain was diffuse had no alleviating factors, and was exacerbated by movement and touching or eating. Patient attempted to take [id number] the medication for pain relief which did not do much. Patient additionally complained of constipation during this time and was not able to have a bowel movement. She believes that this is contributing factor to palpation. Patient additionally admits to be drinking heavily during this time period and she wishes to cut down her drinking. Patient came to the hospital via EMS was seen and evaluated. Patient was scanned and there was evidence of free air in her intra-abdominal cavity. Additionally patient was seen to have diffuse peritonitis. When explained to the patient that prognosis and pathology that was seen on the CT scan. Patient was unable to maintain a proper train of thought and it became quickly evident that she did not understand severity of situation. The entire pathology and surgical options were addressed to her and at this time patient understood better but at the same time wanted her around for guidance and advice. Patient History 1. Leukopenia 2. Peritonitis (acute) generalized 3. Pneumoperitoneum of unknown etiology 4. Hypokalemia 5. Anxiety 6. Hypomagnesemia Social History Patient lives with her at their own residence. She maintains all her ADLs independently. Patient claims to be drinking a quart of vodka on a bi- daily basis. Patient additionally admits to smoking about 5-10 cigarettes a day for the past 15 years. Patient does not use any illicit substances Family History Family history was reviewed; no changes noted. Medications and Allergies Medications Home medication Amitriptyline 50 mg 2 Tabs daily at bedtime Clonazepam 1 mg 4 times a day Allergies Coded Allergies: No Known Drug Allergy (06/26/08) Uncoded Allergies: Food Allergies: NKA Med Allergies: NKA Review of Systems Constitutional Chills, Weakness, Malaise. Denies: Fever, Sweats, Other. Eyes Denies: Pain, Vision Change, Conjunctival Inflammation, Eyelid Inflammation, Redness, Other. ENT Denies: Ear Pain, Ear Discharge, Nose Pain, Nasal Discharge, Nasal Congestion, Mouth Pain, Mouth Swelling, Throat Pain, Throat Swelling, Other. Respiratory Denies: Cough, Dry, SOB w/exertion, Wheezing, Hemoptysis, Pleuritic Pain, Sputum , Other. Cardiovascular Denies: Chest Pain, Palpitations, Orthopnea, PND, Edema, Light-headedness, Other. Gastrointestinal Nausea, Abdominal Pain, Constipation. Denies: Vomiting, Diarrhea, Melena, Hematochezia, Other. Musculoskeletal Denies: Neck Pain, Shoulder Pain, Arm Pain, Back Pain, Hand Pain, Leg Pain, Foot Pain, Other. Skin Denies: Rash, Lesions, Jaundice, Bruising, Other. Neurological Denies: Weakness, Numbness, Incoordination, Change in speech, Confusion, Seizures, Other. Physical Exam General Appearance Alert, No acute distress HEENT Atraumatic, PERRLA, Moist mucous membranes Lungs Clear to auscultation Neck Supple, No JVD, No thyromegaly Cardiovascular Regular rate and rhythm, No murmurs, gallops, rubs Abdomen - rigid abdomen - no evidence of skin changes - no organomegally appreciated - diffuse tenderness Extremities No edema, Normal pulses Skin No Breakdown, No Significant Lesions Neurological Normal tone, Cranial nerves intact, No lateralizing signs Psych/Mental Status Confused, - patients thought process is erratic LAB Results Laboratory Tests 07/31 07/31 0027 0027 Chemistry Plasma Sodium (136 - 145 mmol/L) 132 Plasma Potassium (3.5 - 5.1 mmol/L) 2.4 Plasma Chloride (98 - 107 mmol/L) 91 CO2 (Enzymatic) (21 - 32 mmol/L) 29 BUN (7 - 18 mg/dL) 11 Creatinine (0.6 - 1.3 mg/dL) 1.4 Est GFR ( Amer) (mL/min) 49.41 Est GFR (Non-Af Amer) (mL/min) 40.77 Glucose (70 - 110 mg/dL) 139 Plasma Calcium (8.5 - 10.1 mg/dL) 8.1 Plasma Magnesium (1.8 - 2.4 mg/dL) 1.4 Total Bilirubin (0.0 - 1.0 mg/dL) 0.6 AST (15 - 37 U/L) 43 ALT (12 - 78 U/L) 29 Alkaline Phosphatase (46 - 116 U/L) 43 Ammonia (11 - 32 umol/L) 22 Total Protein (6.4 - 8.2 g/dL) 6.9 Albumin (3.3 - 5.0 g/dL) 3.1 Amylase (25 - 115 U/L) 73 Lipase (73 - 393 U/L) 56 Coagulation INR (0.8 - 1.2) 1.1 APTT (24 - 34 SECONDS) 32 D-Dimer, Quantitative (0.27 - 0.52 ug/mLFEU) 6.35 Hematology WBC (4.5 - 11.5 K/uL) 1.2 RBC (4.00 - 5.20 M/uL) 4.50 Hgb (12.0 - 16.0 gm/dL) 14.2 Hct (36.0 - 46.0 %) 41.5 MCV (80 - 100 fL) 92 MCH (26 - 34 pg) 32 RDW (11.6 - 14.8 %) 19.3 Neut % (Auto) (50 - 75 %) 69 Lymph % (Auto) (25 - 40 %) 28 Dolores % (Auto) (3 - 14 %) 3 Eos % (Auto) (0 - 4 %) 0 Baso % (Auto) (0 - 2 %) 0 Band Neutrophils % (0 - 8 %) 0 Metamyelocytes % (0 - 1 %) 0 Absolute Neutrophils (/mm3) 1 Myelocytes (0 - 1 %) 0 Other Cell Type 0 Plt Count, EDTA (150 - 400 K/uL) 185 PUBS MCHC (31 - 37 g/dL) 34 Toxicology Urine Opiates Screen (NEGATIVE) NEGATIVE Urine Methadone Screen (NEGATIVE) NEGATIVE Ur Barbiturates Screen (NEGATIVE) NEGATIVE U Amphetamin/Meth Scrn (NEGATIVE) NEGATIVE MDMA (Ecstasy) Screen (NEGATIVE) NEGATIVE U Benzodiazepines Scrn (NEGATIVE) NEGATIVE Urine Cocaine Screen (NEGATIVE) NEGATIVE U Cannabinoids Screen (NEGATIVE) NEGATIVE Plasma/Serum Ethyl Alc (3 - 10 mg/dL) <3 /31 07/07/31 0028 0400 0410 Chemistry Lactic Acid (0.4 - 2.0 mmol/L) 4.4 Procalcitonin (0 - 0.5 ng/mL) 3.9 Urines Urine Color YELLOW Urine Appearance CLEAR Urine pH (5.0 - 8.0) 8.5 Ur Specific [place] (1.010 - 1.030) <= 1.005 Urine Protein (NEGATIVE) TRACE Urine Ketones (NEGATIVE) NEGATIVE Urine Blood (NEGATIVE) NEGATIVE Urine Nitrite (NEGATIVE) NEGATIVE Urine Bilirubin (NEGATIVE) NEGATIVE Urine Urobilinogen (0.2 - 1.0 EU/dL) 1.0 Ur Leukocyte Esterase (NEGATIVE) NEGATIVE Urine RBC (0 - 1 rbc/hpf) 0-1 Urine WBC (0 - 1 wbc/hpf) 0-1 Ur Epithelial Cells (0 - 5 EPI/hpf) 1-3 Urine Bacteria (NONE SEEN) NONE SEEN Urine Glucose (NEGATIVE) NEGATIVE Urine Comment CULT NOT INDICATED Microbiology Date/Time Procedure - Status Source Growth 07/31 409 Blood Culture - RECD BLOOD 08/01 399 Blood Culture - RECD BLOOD Assessment and Plan Problem List 1. Peritonitis (acute) generalized Plan Patient has evidence of free air in the abdominal cavity Patient additionally has evidence of diffuse peritonitis Given pathology patient should have an exploratory laparotomy immediately Given the severity of the condition and patient's medical history patient does not pose a major risk for surgery Despite her recent alcohol use and confused state patient would benefit from the surgery No etiology behind the free air We'll monitor the patient postoperatively For at the time being we'll aggressively hydrate the patient We'll provide pain control 2. Leukopenia Plan Patient has evidence of leukopenia on initial blood work Patient has not been taking any medications which may contribute to this low neutrophil count Given patient's possibility of chronic abdominal pain and abdominal swelling this could be secondary to chronic infection Will obtain a CBC immediately after the operation We'll continue to trend patient's neutrophil count If patient needs will provide Neupogen If white blood cell count remains persistently low patient will need full workup including manual differentiation, bone marrow biopsy, hematological workup 3. Hypokalemia Plan Patient has evidence of hypokalemia Patient was treated appropriately with potassium supplementation We'll repeat BMP 4. Anxiety Plan Established history of anxiety and depression Patient takes amitriptyline and clonazepam We'll continue with these medications for the time being once patient is able to take by mouth medications 1 monitor patient's for anxiety and depression
--- NOTE | 2016-07-31 07:09 | Consultation Report ---
Admission Admit Date 07/31/16 History Chief Complaint Abdominal pain History of Present Illness 60-year-old female in the emergency room by Dr. Mercer. Patient presented to the emergency room complaining of several months history of abdominal distention and recently increasing abdominal discomfort in the lower abdomen and nonradiating, localized. It is difficult to elicit a good history from the patient is a poor historian and has a poor train of thought. She describes pain in her lower abdomen as sharp. Patient cannot tell me when her last bowel movement was or when she last passed any flatus. She complains of no vomiting or nausea. She had not say whether she had any fever or chills. Workup in the emergency room included a CTA, which showed free air, as well as fluid in the pelvis and along the gutter. I had a lengthy discussion with Dr. Love the radiologist about this. Patient History 1. Anxiety 2. Hypomagnesemia 3. Hypokalemia 4. Pneumoperitoneum of unknown etiology 5. Leukopenia 6. Peritonitis (acute) generalized 7. Alcohol abuse Social History . No children. Patient drinks a have a cord block per day, although at the time of interview she denied any alcohol intake. Patient smokes a third of approximately two-day She does not use recreational drugs. 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 PAST MEDICAL/SURGICAL HISTORY: Subtotal colectomy by Dr. Arnold, June 2008. From his dictated operative report. It appears that he anastomosed the terminal ileum to the mid sigmoid colon. Questionable history of malignant melanoma. Multiple facial cosmetic surgeries. Alcohol abuse. Anxiety disorder. FAMILY HISTORY: Mother at age 80 of complications from her vascular disease and multiple medical issues Follow at age 83 of multiple medical problems. 4 brothers and one sister the pelvis whereabouts are unknown Medications and Allergies Medications See nurses notes. See Dr. Mercer's history and physical for Medication report Allergies Coded Allergies: No Known Drug Allergy (06/26/08) Uncoded Allergies: Food Allergies: NKA Med Allergies: NKA Review of Systems Other G1, P0, Ab1 Menarche age 12, last menstrual period age 42, last Pap smear approximately 8 months ago. Last mammogram a months ago. Last colonoscopy 2008 Questionable history of hepatitis C; chronic constipation Remaining review of systems negative Physical Exam Vital Signs / I&Os Afebrile, stable vital signs General Appearance Alert, Cooperative, Mild distress HEENT Atraumatic, PERRLA, EOMI, strawberry tongue Lungs Clear to auscultation Neck Supple, No JVD, No masses, No thyromegaly, No lymphadenopathy, 2+ carotid pulse wo bruit Cardiovascular Regular rate and rhythm Abdomen hypoactive bowel sounds. Mildly distended. Tender to palpation. Extremities No cyanosis, No clubbing, No edema Skin warm and dry Neurological history of thought. Responds appropriately. However, at times confused Psych/Mental Status awake, alert LAB Results Laboratory Tests 07/31 07/31 0027 0027 Chemistry Plasma Sodium (136 - 145 mmol/L) 132 Plasma Potassium (3.5 - 5.1 mmol/L) 2.4 Plasma Chloride (98 - 107 mmol/L) 91 CO2 (Enzymatic) (21 - 32 mmol/L) 29 BUN (7 - 18 mg/dL) 11 Creatinine (0.6 - 1.3 mg/dL) 1.4 Est GFR ( Amer) (mL/min) 49.41 Est GFR (Non-Af Amer) (mL/min) 40.77 Glucose (70 - 110 mg/dL) 139 Plasma Calcium (8.5 - 10.1 mg/dL) 8.1 Plasma Magnesium (1.8 - 2.4 mg/dL) 1.4 Total Bilirubin (0.0 - 1.0 mg/dL) 0.6 AST (15 - 37 U/L) 43 ALT (12 - 78 U/L) 29 Alkaline Phosphatase (46 - 116 U/L) 43 Ammonia (11 - 32 umol/L) 22 Total Protein (6.4 - 8.2 g/dL) 6.9 Albumin (3.3 - 5.0 g/dL) 3.1 Amylase (25 - 115 U/L) 73 Lipase (73 - 393 U/L) 56 Coagulation INR (0.8 - 1.2) 1.1 APTT (24 - 34 SECONDS) 32 D-Dimer, Quantitative (0.27 - 0.52 ug/mLFEU) 6.35 Hematology WBC (4.5 - 11.5 K/uL) 1.2 RBC (4.00 - 5.20 M/uL) 4.50 Hgb (12.0 - 16.0 gm/dL) 14.2 Hct (36.0 - 46.0 %) 41.5 MCV (80 - 100 fL) 92 MCH (26 - 34 pg) 32 RDW (11.6 - 14.8 %) 19.3 Neut % (Auto) (50 - 75 %) 69 Lymph % (Auto) (25 - 40 %) 28 Bartholomew % (Auto) (3 - 14 %) 3 Eos % (Auto) (0 - 4 %) 0 Baso % (Auto) (0 - 2 %) 0 Band Neutrophils % (0 - 8 %) 0 Metamyelocytes % (0 - 1 %) 0 Absolute Neutrophils (/mm3) 1 Myelocytes (0 - 1 %) 0 Other Cell Type 0 Plt Count, EDTA (150 - 400 K/uL) 185 PUBS MCHC (31 - 37 g/dL) 34 Toxicology Urine Opiates Screen (NEGATIVE) NEGATIVE Urine Methadone Screen (NEGATIVE) NEGATIVE Ur Barbiturates Screen (NEGATIVE) NEGATIVE U Amphetamin/Meth Scrn (NEGATIVE) NEGATIVE MDMA (Ecstasy) Screen (NEGATIVE) NEGATIVE U Benzodiazepines Scrn (NEGATIVE) NEGATIVE Urine Cocaine Screen (NEGATIVE) NEGATIVE U Cannabinoids Screen (NEGATIVE) NEGATIVE Plasma/Serum Ethyl Alc (3 - 10 mg/dL) <3 07/31 07/31 07/31 0028 0400 0410 Chemistry Lactic Acid (0.4 - 2.0 mmol/L) 4.4 Procalcitonin (0 - 0.5 ng/mL) 3.9 Urines Urine Color YELLOW Urine Appearance CLEAR Urine pH (5.0 - 8.0) 8.5 Ur Specific [place] (1.010 - 1.030) <= 1.005 Urine Protein (NEGATIVE) TRACE Urine Ketones (NEGATIVE) NEGATIVE Urine Blood (NEGATIVE) NEGATIVE Urine Nitrite (NEGATIVE) NEGATIVE Urine Bilirubin (NEGATIVE) NEGATIVE Urine Urobilinogen (0.2 - 1.0 EU/dL) 1.0 Ur Leukocyte Esterase (NEGATIVE) NEGATIVE Urine RBC (0 - 1 rbc/hpf) 0-1 Urine WBC (0 - 1 wbc/hpf) 0-1 Ur Epithelial Cells (0 - 5 EPI/hpf) 1-3 Urine Bacteria (NONE SEEN) NONE SEEN Urine Glucose (NEGATIVE) NEGATIVE Urine Comment CULT NOT INDICATED Microbiology Date/Time Procedure - Status Source Growth 07/31 409 Blood Culture - RECD BLOOD 08/01 399 Blood Culture - RECD BLOOD Imaging Radiological studies reviewed with Dr. Luz who states that the patient had free air in the abdomen, most likely from the a perforated viscus in the pelvis was purulent material along the gutter. Assessment and Plan Problem List 1. Peritonitis (acute) generalized Plan Diagnostic laparoscopy, possible open laparotomy, possible colostomy. The procedure then explained to the patient in the presence of an emergency room nurse. Patient understands the procedure, that she is to have and the suspected intra-abdominal pathology. Patient understands and agrees to proceed. At this point risks and benefits are understood and all questions have been answered to her satisfaction.
--- NOTE | 2016-07-31 07:17 | ED MED RECONCILIATION SUMMARY ---
Patient: SETH HERCULES A Medication Reconciliation Report Located Within [facility] VisitID: [id number] [place] [address] 60y, F Registration Date/Time: 07/31/2016 Weight: 45.3 kg Height/Length: 63 in. BMI: 17.7 ALLERGIES: No Known Drug Allergy The patient's Home Medications are listed below: THE FOLLOWING MEDICATIONS NEED TO BE RECONCILED: Amitriptyline HCl Oral 50 mg, 3 tabs, at bedtime Benadryl Oral 25 mg, allergies ClonazePAM Oral 1 mg, 4x a day Potassium Chloride Oral The source(s) of the original Home Medication information: Not obtained. The following Medications were given to the patient in the Emergency Department: IV NS IV Fluids bolus 0, then 1000 mL/hr, administered: 07/31/2016 12:48:00 AM Potassium Chloride [IVPB] IVPB bolus 0, then 20 meq 50 mL/hr, administered: 07/31/2016 1:52:00 AM Potassium Chloride [PO] PO 20 meq, administered: 07/31/2016 1:54:00 AM Magnesium Oxide 400mg PO 400 mg, administered: 07/31/2016 1:54:00 AM IV#2 NS IV Fluids bolus 1000 mL wide open, administered: 07/31/2016 1:45:00 AM Metronidazole [IVPB] IVPB bolus 0, then 500 mg, administered: 07/31/2016 4:27:00 AM IV NS IV Fluids bolus 0, then 1000 mL/hr, administered: 07/31/2016 4:55:00 AM Cefepime [IVPB] IVPB bolus 0, then 2 gm 140 mL/hr, administered: 07/31/2016 5:28:00 AM The following Medications were prescribed to the patient: None.
--- NOTE | 2016-07-31 07:17 | ED DISCHARGE INSTRUCTIONS ---
Patient: SETH HERCULES General Instructions [facility] VisitID: [id number] [address] [place] [address] 60y, F Registration Date/Time: 07/31/2016 Generalized acute peritonitis (unknown etiology). Hypokalemia. Moderate hypomagnesemia. Leukocytopenia. (Pneumoperitoneum). (Electronically signed by Oscar Navarrete Dr. 07/31/2016 7:16)
--- NOTE | 2016-07-31 07:17 | ED MED RECONCILIATION SUMMARY ---
Patient: SETH HERCULES A Medication Reconciliation Report [facility] VisitID: [id number] [place] [address] 60y, F Registration Date/Time: 07/31/2016 Weight: 45.3 kg Height/Length: 63 in. BMI: 17.7 ALLERGIES: No Known Drug Allergy The patient's Home Medications are listed below: THE FOLLOWING MEDICATIONS NEED TO BE RECONCILED: Amitriptyline HCl Oral 50 mg, 3 tabs, at bedtime Benadryl Oral 25 mg, allergies ClonazePAM Oral 1 mg, 4x a day Potassium Chloride Oral The source(s) of the original Home Medication information: Not obtained. The following Medications were given to the patient in the Emergency Department: IV NS IV Fluids bolus 0, then 1000 mL/hr, administered: 07/31/2016 12:48:00 AM Potassium Chloride [IVPB] IVPB bolus 0, then 20 meq 50 mL/hr, administered: 07/31/2016 1:52:00 AM Potassium Chloride [PO] PO 20 meq, administered: 07/31/2016 1:54:00 AM Magnesium Oxide 400mg PO 400 mg, administered: 07/31/2016 1:54:00 AM IV#2 NS IV Fluids bolus 1000 mL wide open, administered: 07/31/2016 1:45:00 AM Metronidazole [IVPB] IVPB bolus 0, then 500 mg, administered: 07/31/2016 4:27:00 AM IV NS IV Fluids bolus 0, then 1000 mL/hr, administered: 07/31/2016 4:55:00 AM Cefepime [IVPB] IVPB bolus 0, then 2 gm 140 mL/hr, administered: 07/31/2016 5:28:00 AM The following Medications were prescribed to the patient: None.
--- NOTE | 2016-07-31 07:17 | ED DISCHARGE INSTRUCTIONS ---
Patient: SETH HERCULES General Instructions [facility] VisitID: [id number] [address] [place] [address] 60y, F Registration Date/Time: 07/31/2016 Generalized acute peritonitis (unknown etiology). Hypokalemia. Moderate hypomagnesemia. Leukocytopenia. (Pneumoperitoneum). (Electronically signed by Oscar Navarrete Dr. 07/31/2016 7:16)
--- NOTE | 2016-07-31 07:17 | ED MAR SUMMARY ---
..... Medication Administration Record [facility] [address] [facility] [place] [address] Patient: SETH HERCULES Visit ID: [id number] 60y, F Weight: 45.3 kg Height/Length: 63 in BMI: 17.7 ALLERGIES: No Known Drug Allergy Start 00:48 07/31/2016 Dinorah Connelly R.N., Stop 01:52 07/31/2016 Dinorah Connelly R.N. Medication Administered: IV NS (SALINE), Dose: IV Fluids over 1 hour(s), Rate: 1000 mL/hr, Dispensed: 1000 mL bag, Site: #1 right AC. Medication Ordered: IV NS : initial bolus none -, then 1000 mL/hr for X1 (NOW). Start 01:45 07/31/2016 Dinorah Connelly R.N., Stop 03:26 07/31/2016 Dinorah Connelly R.N. Medication Administered: IV#2 NS (SALINE), Dose: IV Fluids over 1 hour(s), Bolus: 1000 mL wide open, Dispensed: 1000 mL bag, Site: #1 right AC. Medication Ordered: IV#2 NS with Normal Saline 1 Liter: initial bolus 1000 mL (1000 mL/hr), then 1000 mL/hr (NOW). Start 01:52 07/31/2016 Dinorah Connelly R.N., Stop 04:25 07/31/2016 Dinorah Connelly R.N. Medication Administered: POTASSIUM CHLORIDE [IVPB] (POTASSIUM CHLORIDE), Dose: 20 meq IVPB over 2 hour(s), Rate: 50 mL/hr, Dispensed: 100 mL bag, Site: #1 right AC. Medication Ordered: Potassium Chloride IV 20 meq/100mL (HIGH ALERT MEDICATION, NOW, Run no faster than 10 mEq/hr). Given 01:54 07/31/2016 Dinorah Connelly R.N. Medication Administered: POTASSIUM CHLORIDE [PO] (POTASSIUM CHLORIDE ER), Dose: 20 meq Tablets PO. Medication Ordered: Potassium Chloride PO 20 meq (NOW). Given 01:54 07/31/2016 Dinorah Connelly R.N. Medication Administered: Magnesium Oxide 400mg *, Dose: 400 mg * PO. Medication Ordered: - (Magnesium Oxide 400 mg PO x 1 now). Start 04:27 07/31/2016 Dinorah Connelly R.N., Stop 05:27 07/31/2016 Dinorah Connelly R.N. Medication Administered: METRONIDAZOLE [IVPB], Dose: 500 mg IVPB over 1 hour(s), Dispensed: 100 mL bag, Site: #1 right AC. Medication Ordered: Metronidazole IV 500 mg/100mL (NOW). Start 04:55 07/31/2016 Dinorah Connelly R.N., Stop 05:50 07/31/2016 Dinorah Connelly R.N. Medication Administered: IV NS (SALINE), Dose: IV Fluids over 1 hour(s), Rate: 1000 mL/hr, Dispensed: 1000 mL bag, Site: #1 right AC. Medication Ordered: IV NS : initial bolus none -, then 1000 mL/hr for X1 (NOW). Start 05:28 07/31/2016 Dinorah Connelly R.N., Stop 05:51 07/31/2016 Dinorah Connelly R.N. Medication Administered: CEFEPIME [IVPB], Dose: 2 gm IVPB over 30 minute(s), Rate: 140 mL/hr, Dispensed: 50 mL bag, Site: #1 right AC. Medication Ordered: Cefepime IV 2 gm/50mL (NOW).
--- NOTE | 2016-07-31 07:17 | ED MAR SUMMARY ---
..... Medication Administration Record [facility] [address] [facility] [place] [address] Patient: SETH HERCULES Visit ID: [id number] 60y, F Weight: 45.3 kg Height/Length: 63 in BMI: 17.7 ALLERGIES: No Known Drug Allergy Start 00:48 07/31/2016 Dinorah Connelly R.N., Stop 01:52 07/31/2016 Dinorah Connelly R.N. Medication Administered: IV NS (SALINE), Dose: IV Fluids over 1 hour(s), Rate: 1000 mL/hr, Dispensed: 1000 mL bag, Site: #1 right AC. Medication Ordered: IV NS : initial bolus none -, then 1000 mL/hr for X1 (NOW). Start 01:45 07/31/2016 Dinorah Connelly R.N., Stop 03:26 07/31/2016 Dinorah Connelly R.N. Medication Administered: IV#2 NS (SALINE), Dose: IV Fluids over 1 hour(s), Bolus: 1000 mL wide open, Dispensed: 1000 mL bag, Site: #1 right AC. Medication Ordered: IV#2 NS with Normal Saline 1 Liter: initial bolus 1000 mL (1000 mL/hr), then 1000 mL/hr (NOW). Start 01:52 07/31/2016 Dinorah Connelly R.N., Stop 04:25 07/31/2016 Dinorah Connelly R.N. Medication Administered: POTASSIUM CHLORIDE [IVPB] (POTASSIUM CHLORIDE), Dose: 20 meq IVPB over 2 hour(s), Rate: 50 mL/hr, Dispensed: 100 mL bag, Site: #1 right AC. Medication Ordered: Potassium Chloride IV 20 meq/100mL (HIGH ALERT MEDICATION, NOW, Run no faster than 10 mEq/hr). Given 01:54 07/31/2016 Dinorah Connelly R.N. Medication Administered: POTASSIUM CHLORIDE [PO] (POTASSIUM CHLORIDE ER), Dose: 20 meq Tablets PO. Medication Ordered: Potassium Chloride PO 20 meq (NOW). Given 01:54 07/31/2016 Dinorah Connelly R.N. Medication Administered: Magnesium Oxide 400mg *, Dose: 400 mg * PO. Medication Ordered: - (Magnesium Oxide 400 mg PO x 1 now). Start 04:27 07/31/2016 Dinorah Connelly R.N., Stop 05:27 07/31/2016 Dinorah Connelly R.N. Medication Administered: METRONIDAZOLE [IVPB], Dose: 500 mg IVPB over 1 hour(s), Dispensed: 100 mL bag, Site: #1 right AC. Medication Ordered: Metronidazole IV 500 mg/100mL (NOW). Start 04:55 07/31/2016 Dinorah Connelly R.N., Stop 05:50 07/31/2016 Dinorah Connelly R.N. Medication Administered: IV NS (SALINE), Dose: IV Fluids over 1 hour(s), Rate: 1000 mL/hr, Dispensed: 1000 mL bag, Site: #1 right AC. Medication Ordered: IV NS : initial bolus none -, then 1000 mL/hr for X1 (NOW). Start 05:28 07/31/2016 Dinorah Connelly R.N., Stop 05:51 07/31/2016 Dinorah Connelly R.N. Medication Administered: CEFEPIME [IVPB], Dose: 2 gm IVPB over 30 minute(s), Rate: 140 mL/hr, Dispensed: 50 mL bag, Site: #1 right AC. Medication Ordered: Cefepime IV 2 gm/50mL (NOW).
--- NOTE | 2016-07-31 07:20 | Progress Note ---
Subjective General 60-year-old female presented to the emergency room complaining of several months history of abdominal distention. Acute changes over the past 24 hours. Admitted with a perforated viscus. Seen by Dr. Jordan; who performed emergent laporoscopy vs open laporotaomy. Procedure included an open laparotomy. Dr. Jordan found that there was pus in the abdomen. Patient had a washout patient has discharge from the OR with a colostomy. Subjective Patient is sleep sedated upon initial evaluation. Patient required O2 for support of airway. Patient has a remote smoking history. Approximately 2 PM patient opened her eyes and became alert. Patient was talking and understood her situation. Discussed the care with her . Patient's is at bedside during most of the day. Constitutional Denies: Chills. Physical Exam Vital Signs / I&Os Temperature 98.8, pulse rate 99, respiratory rate 12, blood pressure 129/87. Saturations 100% on 2 L. General Appearance sedated, somnolent, arousable Once aroused became alert. Lungs Clear to auscultation, Normal air movement Cardiovascular Regular rate and rhythm, Normal S1 and S2 Abdomen status post open laparotomy Extremities No clubbing, No edema Neurological Normal speech LAB Results Laboratory Tests 07/31 07/31 0027 0027 Chemistry Plasma Sodium (136 - 145 mmol/L) 132 Plasma Potassium (3.5 - 5.1 mmol/L) 2.4 Plasma Chloride (98 - 107 mmol/L) 91 CO2 (Enzymatic) (21 - 32 mmol/L) 29 BUN (7 - 18 mg/dL) 11 Creatinine (0.6 - 1.3 mg/dL) 1.4 Est GFR ( Amer) (mL/min) 49.41 Est GFR (Non-Af Amer) (mL/min) 40.77 Glucose (70 - 110 mg/dL) 139 Plasma Calcium (8.5 - 10.1 mg/dL) 8.1 Plasma Magnesium (1.8 - 2.4 mg/dL) 1.4 Total Bilirubin (0.0 - 1.0 mg/dL) 0.6 AST (15 - 37 U/L) 43 ALT (12 - 78 U/L) 29 Alkaline Phosphatase (46 - 116 U/L) 43 Ammonia (11 - 32 umol/L) 22 Total Protein (6.4 - 8.2 g/dL) 6.9 Albumin (3.3 - 5.0 g/dL) 3.1 Amylase (25 - 115 U/L) 73 Lipase (73 - 393 U/L) 56 Coagulation INR (0.8 - 1.2) 1.1 APTT (24 - 34 SECONDS) 32 D-Dimer, Quantitative (0.27 - 0.52 ug/mLFEU) 6.35 Hematology WBC (4.5 - 11.5 K/uL) 1.2 RBC (4.00 - 5.20 M/uL) 4.50 Hgb (12.0 - 16.0 gm/dL) 14.2 Hct (36.0 - 46.0 %) 41.5 MCV (80 - 100 fL) 92 MCH (26 - 34 pg) 32 RDW (11.6 - 14.8 %) 19.3 Neut % (Auto) (50 - 75 %) 69 Lymph % (Auto) (25 - 40 %) 28 [place] % (Auto) (3 - 14 %) 3 Eos % (Auto) (0 - 4 %) 0 Baso % (Auto) (0 - 2 %) 0 Band Neutrophils % (0 - 8 %) 0 Metamyelocytes % (0 - 1 %) 0 Absolute Neutrophils (/mm3) 1 Myelocytes (0 - 1 %) 0 Other Cell Type 0 Plt Count, EDTA (150 - 400 K/uL) 185 PUBS MCHC (31 - 37 g/dL) 34 Toxicology Urine Opiates Screen (NEGATIVE) NEGATIVE Urine Methadone Screen (NEGATIVE) NEGATIVE Ur Barbiturates Screen (NEGATIVE) NEGATIVE U Amphetamin/Meth Scrn (NEGATIVE) NEGATIVE MDMA (Ecstasy) Screen (NEGATIVE) NEGATIVE U Benzodiazepines Scrn (NEGATIVE) NEGATIVE Urine Cocaine Screen (NEGATIVE) NEGATIVE U Cannabinoids Screen (NEGATIVE) NEGATIVE Plasma/Serum Ethyl Alc (3 - 10 mg/dL) <3 07/31 07/31 07/31 07/31 0028 0400 0410 1035 Chemistry Lactic Acid (0.4 - 2.0 mmol/L) 4.4 3.0 Procalcitonin (0 - 0.5 ng/mL) 3.9 Urines Urine Color YELLOW Urine Appearance CLEAR Urine pH (5.0 - 8.0) 8.5 Ur Specific [place] (1.010 - 1.030) <= 1.005 Urine Protein (NEGATIVE) TRACE Urine Ketones (NEGATIVE) NEGATIVE Urine Blood (NEGATIVE) NEGATIVE Urine Nitrite (NEGATIVE) NEGATIVE Urine Bilirubin (NEGATIVE) NEGATIVE Urine Urobilinogen (0.2 - 1.0 EU/dL) 1.0 Ur Leukocyte Esterase (NEGATIVE) NEGATIVE Urine RBC (0 - 1 rbc/hpf) 0-1 Urine WBC (0 - 1 wbc/hpf) 0-1 Ur Epithelial Cells (0 - 5 EPI/hpf) 1-3 Urine Bacteria (NONE SEEN) NONE SEEN Urine Glucose (NEGATIVE) NEGATIVE Urine Comment CULT NOT INDICATED 07/31 1130 Chemistry Plasma Sodium (136 - 145 mmol/L) 140 Plasma Potassium (3.5 - 5.1 mmol/L) 3.2 Plasma Chloride (98 - 107 mmol/L) 107 CO2 (Enzymatic) (21 - 32 mmol/L) 21 BUN (7 - 18 mg/dL) 9 Creatinine (0.6 - 1.3 mg/dL) 0.7 Est GFR ( Amer) (mL/min) >60 Est GFR (Non-Af Amer) (mL/min) >60 Glucose (70 - 110 mg/dL) 105 Plasma Calcium (8.5 - 10.1 mg/dL) 6.8 Plasma Magnesium (1.8 - 2.4 mg/dL) 1.4 Total Bilirubin (0.0 - 1.0 mg/dL) 0.4 AST (15 - 37 U/L) 84 ALT (12 - 78 U/L) 36 Alkaline Phosphatase (46 - 116 U/L) 30 Total Protein (6.4 - 8.2 g/dL) 4.8 Albumin (3.3 - 5.0 g/dL) 2.1 Microbiology Date/Time Procedure - Status Source Growth 07/31 1100 MRSA Screen - RECD NOSE 07/31 0900 Deep Wound Culture - RES ABDOMEN 07/31 0900 Deep Wound Culture - RES ABDOMEN 07/31 0900 Gram Stain - RES ABDOMEN 07/31 0410 Blood Culture - RECD BLOOD 07/31 0400 Blood Culture - RECD BLOOD Assessment and Plan Problem List 1. Peritonitis (acute) generalized Plan Patient on admission with a pneumoperitonitis. Discovered in the OR that patient had perforated her small bowel. Patient was discharged to the CCU. Patient had uneventful surgical procedure. Patient will be on bowel rest. Watch for changes in colostomy. Followed by surgery 2. Pneumoperitoneum of unknown etiology Plan The with a pneumoperitoneum on initial examination. Urgently taken into the OR 3. Leukopenia Plan Leukopenia on initial exam. Patient on precaution. Undetermined etiology but probable alcohol-induced Check iron levels folate, B12. Patient will be given a banana bag for alcohol withdrawal protocol. Nutritional support. 4. Hypokalemia Plan Severe hypokalemia on admission. Patient was given replacement. Recheck in the a.m. 5. Hypomagnesemia Plan Hypomagnesemia on admission; replacement given. 6. Alcohol abuse Plan Long history of alcohol abuse. Taken up to a quart of vodka every 2-3 days. Alcohol precautions. Frequent labs to review potassium and mag. Patient is approximately 3 days from her last alcoholic beverage. Neurochecks.
--- NOTE | 2016-07-31 09:03 | Operative Report ---
Operative Report Date of Surgery: 07/31/16 Preoperate Diagnosis: peritonitis; perforated viscus; pneumoperitoneum Postoperative Diagnosis: diffuse peritonitis; perforated ileosigmoid anastomosis Surgeon: Kenton Jordan MD Personnel Training Officer Surgeon: Jb Arnold MD Procedure Performed: Diagnostic laparoscopy; open laparotomy, resection of portion terminal ileum and sigmoid; ileostomy Anesthesia: Gen. endotracheal; supplemented local 1% Xylocaine with epinephrine, 0.5% Marcaine with epinephrine Indications: 60-year-old female is to the emergency room with vague abdominal complaints during her workup she was noted have a leukopenia and CT scan showing free air in the abdomen with what appeared to be purulent fluid along the gutters. Physical examination revealed consistent with peritonitis. FINDINGS: On laparoscopy, the patient was noted to have diffuse peritonitis, diffuse purulent peritoneal fluid. On open laparotomy the aforementioned findings also noted. Patient was also noted to have what could of been a torsed site of anastomosis between the terminal ileum and the remaining sigmoid with perforation. She was also noted to have a firm stool in the rectosigmoid. Surgical Technique: After obtaining informed consent, patient was brought to the operating room. Patient was placed in the dorsal supine position where she underwent general endotracheal anesthesia by the anesthesiology department. After proper anesthesia, taken from the patient's abdomen was prepped using Betadine and draped in a sterile fashion. An infraumbilical incision made carried to the skin, subcutaneous tissue, a Veress needle was inserted through this site and a pneumoperitoneum obtained to a pressure of approximately 14-15 mmHg pressure. The Veress needle was removed and replaced and the trocar. Trocar removed and the staple lines which laparoscopic video camera was introduced into the abdominal cavity. The aforementioned findings noted. It was at this point, we decided to proceed with open laparotomy. The pneumoperitoneum was released, all trochars removed and all cavity. An infraumbilical midline incision made to the skin, subcutaneous tissue the abdominal cavity was entered being careful to avoid injury to the underlying abdominal contents. On entering the abdominal cavity, the purulent abdominal fluid was aspirated and sent to lab for culture. The small bowel was run to point to the terminal ileum was anastomosis was the remaining sigmoid with a perforation was identified. It appeared that the terminal ileum torsed causing the ischemic area to perforate. Abdominal cavity was irrigated copiously with warm normal saline interbody fusion and irrigant suctioned out. Once the abdominal fluid returned clear attention was then turned to the terminal ileum. The terminal ileum was transected just proximal to the area of the perforation using a RANGEL stapler. The sigmoid colon was transected using a RANGEL stapler just distal to the previously described perforation and anastomosis. The mesentery and mesocolon was taken down using the ThunderBeat. The specimen was handed off the field. The remaining sigmoid was tacked to the undersurface of the left anterolateral abdominal wall using 3-0 silk suture. A small circular incision was made in the right right mid abdomen over the rectus sheath. The rectus sheath was then and the terminal ileum was grasped and brought up through this rent through the skin ileostomy site. Normal cavity was irrigated once again, and hemostasis assured. Seprafilm was placed over the remaining omentum and the undersurface of the abdominal wall. The midline was closed using running #1 Maxon. Subcutaneous tissue was irrigated once again. The skin was approximated using skin cash. Our incisions site was protected, and her ileostomy matured using 3-0 Polysorb interrupted suture. Dressing applied to the wound, ileostomy appliance placed over the ileostomy site and the patient was placed in abdominal binder. The patient was extubated and transferred to recovery room in stable condition. There no intraoperative or anesthetic, condition. CONDITION: Stable to postoperative anesthesia recovery room COMPLICATIONS: None ESTIMATED BLOOD LOSS: Minimal FLUIDS:: 1000 cc lactate of Ringer's DRAINS/PACKING: Kan catheter SPECIMEN: Terminal ileum and portion of sigmoid. Cultures of peritoneal fluid
[2016-07-31] MEDS ORDERED: AMITRIPTYLINE H25 MG PO (14:28)
[2016-07-31] MEDS ORDERED: BENADRYL ALLERG25 M1 PO (14:29)
[2016-07-31] MEDS ORDERED: CLONAZEPAM1 MG PO (14:29)
[2016-07-31] MEDS ORDERED: KLOR-CON 1010 MEQ PO (14:30)
[2016-08-01] VITALS (22 sets, daily range): BP systolic 87–135; BP diastolic 61–110
--- NOTE | 2016-08-01 06:22 | Progress Note ---
Subjective General 60-year-old female postop day 1 status post exploratory laparotomy for partial terminal ileectomy and partial sigmoidectomy with ileostomy. He remains sedated secondary to alcohol withdrawal protocol. No cardiac or respiratory issues during the night Physical Exam Vital Signs / I&Os Vital Signs Date Time Temp Pulse Resp B/P Pulse O2 O2 Flow FiO2 Ox Delivery Rate 08/01 0514 79 19 96/66 99 Room Air 08/01 0413 135/110 08/01 0410 89 20 100 Room Air 08/01 0327 91 27 100/67 99 Room Air 08/01 0237 71 27 95/65 96 Room Air 08/01 0124 104 24 109/84 100 Room Air 08/01 0003 100 16 98/73 98 Nasal 2.0 Cannula I&O 07/31 0800 07/31 1600 08/01 0000 Intake Total 1999 7050 2036 Output Total 200 8008 685 Balance 1800 -958 1351 General Appearance sedated, restrained HEENT PERRLA Lungs Clear to auscultation Neck No JVD Cardiovascular Regular rate and rhythm Abdomen Normal bowel sounds, functioning ileostomy was dual in the ileostomy bag Extremities No cyanosis, No clubbing, No edema Skin warm and dry Neurological heavily sedated LAB Results Laboratory Tests 07/31 07/31 07/31 08/01 08/01 1035 1130 1805 0440 0440 Chemistry Plasma Sodium (136 - 145 mmol/L) 140 143 142 Plasma Potassium (3.5 - 5.1 mmol/L) 3.2 3.9 3.7 Plasma Chloride (98 - 107 mmol/L) 107 109 112 CO2 (Enzymatic) (21 - 32 mmol/L) 21 23 21 BUN (7 - 18 mg/dL) 9 9 12 Creatinine (0.6 - 1.3 mg/dL) 0.7 0.7 0.8 Est GFR ( Amer) (mL/min) >60 >60 >60 Est GFR (Non-Af Amer) (mL/min) >60 >60 >60 Glucose (70 - 110 mg/dL) 105 84 76 Hemoglobin A1c % (4.5 - 6.2 %) 5.4 Lactic Acid (0.4 - 2.0 mmol/L) 3.0 Plasma Calcium (8.5 - 10.1 mg/dL) 6.8 7.3 7.6 Plasma Magnesium (1.8 - 2.4 mg/dL) 1.4 2.2 Total Bilirubin (0.0 - 1.0 mg/dL) 0.4 0.5 0.3 AST (15 - 37 U/L) 84 69 56 ALT (12 - 78 U/L) 36 36 31 Alkaline Phosphatase (46 - 116 U/L) 30 32 31 Total Protein (6.4 - 8.2 g/dL) 4.8 5.0 5.2 Albumin (3.3 - 5.0 g/dL) 2.1 2.1 2.0 Triglycerides (30 - 200 mg/dL) 69 Cholesterol (140 - 200 mg/dL) 149 LDL Cholesterol, Calc (mg/dL) 47 HDL Cholesterol (32 - 96 mg/dL) 89 LDL/HDL Ratio 0.5 Cholesterol/HDL Ratio 1.7 Coronary Risk Interp (0.4 - 1.0) 0.4 TSH 3rd Generation (0.30 - 3.74 uIU/mL) 3.892 Hematology WBC (4.5 - 11.5 K/uL) 3.6 4.6 Corrected WBC (auto) (K/uL) 3.5 RBC (4.00 - 5.20 M/uL) 4.07 3.28 Hgb (12.0 - 16.0 gm/dL) 12.5 10.1 Hct (36.0 - 46.0 %) 38.2 30.3 MCV (80 - 100 fL) 94 92 MCH (26 - 34 pg) 31 31 RDW (11.6 - 14.8 %) 19.5 20.0 Neut % (Auto) (50 - 75 %) 16 Lymph % (Auto) (25 - 40 %) 16 [place] % (Auto) (3 - 14 %) 38 Eos % (Auto) (0 - 4 %) 0 Baso % (Auto) (0 - 2 %) 0 Band Neutrophils % (0 - 8 %) 30 Metamyelocytes % (0 - 1 %) 0 Myelocytes (0 - 1 %) 0 Nucleated RBCs (0 - 1) 3 Other Cell Type 0 Plt Count, EDTA (150 - 400 K/uL) 130 93 Anisocytosis (manual) 2+ PUBS MCHC (31 - 37 g/dL) 33 34 08/01 08/01 08/01 08/01 0545 0545 0545 0545 Chemistry Lactic Acid Pending Iron Pending TIBC Pending Iron Saturation Pending Prealbumin Pending Vitamin B12 Pending Folate Pending Microbiology Date/Time Procedure - Status Source Growth 07/31 1100 MRSA Screen - RECD NOSE 07/31 0900 Deep Wound Culture - RES ABDOMEN 07/31 0900 Deep Wound Culture - RES ABDOMEN 07/31 0900 Gram Stain - RES ABDOMEN Assessment and Plan Problem List 1. Bowel perforation Plan Postop day 1 stable. We will start on sips of liquids today. Aspiration precautions. Head of bed elevated. Continue alcohol withdrawal protocol with IV sedation as appropriate.
--- NOTE | 2016-08-01 10:27 | DIAGNOSTIC IMAGING REPORT ---
PROCEDURE: XR CHEST 1 VIEW INDICATION: on o2 TECHNIQUE: Portable AP view 09:41 a.m. COMPARISON: Chest x-ray 11/12/2013 FINDINGS: Normal heart size but new pulmonary vascular congestion, small pleural effusions and bibasilar alveolar opacities, left greater than right Bony thorax is unremarkable. IMPRESSION: 1. CHF/fluid overload with small bilateral pleural effusions. Cannot completely exclude left basilar infiltrate 2. Results discussed with Dr. Santos
--- NOTE | 2016-08-01 11:00 | Progress Note ---
Subjective General 60-year-old female presented to the emergency room complaining of several months history of abdominal distention. Acute changes over the past 24 hours. Admitted with a perforated viscus. Seen by Dr. Jordan; who performed emergent laporoscopy vs open laporotaomy. Procedure included an open laparotomy. Dr. Jordan found that there was pus in the abdomen. Patient had a washout patient has discharge from the OR with an ileostomy. She was seen this morning with asked to a production into the ileostomy. Patient was cleared for sepsis.. Patient however overnight had what appeared to be alcohol withdrawal symptoms. Patient had periods of hallucination. Patient was placed on Pradexa as a drip to sedate and control her alcohol withdrawal symptoms. Patient had less than adequate response. Patient remained hypersomnolent during the day. No seizures blood pressure was well controlled. Discussed starting patient on TPN for nutritional support. He showed poor urine output during the day. Patient was given multiple sinus boluses. Followed by Tyler Subjective Patient is sleep sedated upon initial evaluation. Patient is not clearly waking up. Patient hypersomnolent. Patient maintained adequately on medical support. The ileostomy valgus producing. CXR with infiltrate left with effusion. Chest x-ray performed showing infiltrate in the left lung field. Patient started on ceftriaxone 2 g IV. Also showed up was a gram-negative luke and non- fluid cultures. Constitutional Weakness. Denies: Fever. Respiratory Other (oxygen requirements). Denies: Wheezing. Cardiovascular Denies: Palpitations. Gastrointestinal Other (status post ileostomy). Physical Exam Vital Signs / I&Os Vital Signs Date Time Temp Pulse Resp B/P Pulse O2 O2 Flow FiO2 Ox Delivery Rate 08/01 1034 97.2 64 18 105/80 100 Room Air 08/01 0922 68 15 87/61 99 Room Air 08/01 0745 2.0 08/01 0710 69 17 103/72 99 Room Air 08/01 0649 97.7 70 16 97/72 99 Room Air 08/01 0600 99/72 08/01 0514 79 19 96/66 99 Room Air 08/01 0413 135/110 08/01 0410 89 20 100 Room Air 08/01 0327 91 27 100/67 99 Room Air 08/01 0237 71 27 95/65 96 Room Air 08/01 0124 104 24 109/84 100 Room Air 08/01 0003 100 16 98/73 98 Nasal 2.0 Cannula 07/31 2159 94 19 103/76 100 Nasal 2.0 Cannula 07/31 2105 97.5 97 23 104/77 100 Nasal 2.0 Cannula 07/31 2030 Nasal 2.0 Cannula 07/31 2003 2.0 07/31 2000 89 19 107/74 100 Nasal 2.0 Cannula 07/31 1912 95 19 104/77 100 Nasal 2.0 Cannula 07/31 1800 98.2 96 15 114/74 100 Nasal 2.0 Cannula 07/31 1707 100 15 126/83 100 Nasal 2.0 Cannula 07/31 1600 95 18 121/83 100 Nasal 2.0 Cannula 07/31 1455 98.8 99 12 129/87 100 Mask 2.0 07/31 1400 97.7 101 12 138/89 100 Mask 2.0 07/31 1300 97 11 140/89 99 Mask 2.0 07/31 1200 99 12 116/80 99 Mask 3.0 07/31 1126 3.0 07/31 1100 104 12 121/80 100 Mask 2.0 I&O 07/31 0800 07/31 1600 08/01 0000 Intake Total 1999 7050 2036 Output Total 200 8008 685 Balance 1800 -958 1351 General Appearance Mild distress, sedated Lungs shallow air movement. course breath sounds. Cardiovascular Normal S1 and S2 Abdomen ileostomy producing and in place. Bandaged abdomen Extremities No edema LAB Results Laboratory Tests 07/31 08/01 08/01 08/01 08/01 1805 0440 0440 0545 0545 Chemistry Plasma Sodium (136 - 145 mmol/L) 143 142 Plasma Potassium (3.5 - 5.1 mmol/L) 3.9 3.7 Plasma Chloride (98 - 107 mmol/L) 109 112 CO2 (Enzymatic) (21 - 32 mmol/L) 23 21 BUN (7 - 18 mg/dL) 9 12 Creatinine (0.6 - 1.3 mg/dL) 0.7 0.8 Est GFR ( Amer) (mL/min) >60 >60 Est GFR (Non-Af Amer) (mL/min) >60 >60 Glucose (70 - 110 mg/dL) 84 76 Hemoglobin A1c % (4.5 - 6.2 %) 5.4 Plasma Calcium (8.5 - 10.1 mg/dL) 7.3 7.6 Plasma Magnesium (1.8 - 2.4 mg/dL) 2.2 Iron (35 - 150 ug/dL) 6 TIBC (260 - 445 ug/dL) 169 Iron Saturation (15 - 50 %) 4 Total Bilirubin (0.0 - 1.0 mg/dL) 0.5 0.3 AST (15 - 37 U/L) 69 56 ALT (12 - 78 U/L) 36 31 Alkaline Phosphatase (46 - 116 U/L) 32 31 Total Protein (6.4 - 8.2 g/dL) 5.0 5.2 Albumin (3.3 - 5.0 g/dL) 2.1 2.0 Triglycerides (30 - 200 mg/dL) 69 Cholesterol (140 - 200 mg/dL) 149 LDL Cholesterol, Calc (mg/dL) 47 HDL Cholesterol (32 - 96 mg/dL) 89 LDL/HDL Ratio 0.5 Cholesterol/HDL Ratio 1.7 Coronary Risk Interp (0.4 - 1.0) 0.4 Vitamin B12 (211 - 946 pg/mL) 1339 Folate (>3.0 ng/mL) 11.1 TSH 3rd Generation (0.30 - 3.74 uIU/mL) 3.892 Hematology WBC (4.5 - 11.5 K/uL) 3.6 4.6 Corrected WBC (auto) (K/uL) 3.5 4.6 RBC (4.00 - 5.20 M/uL) 4.07 3.28 Hgb (12.0 - 16.0 gm/dL) 12.5 10.1 Hct (36.0 - 46.0 %) 38.2 30.3 MCV (80 - 100 fL) 94 92 MCH (26 - 34 pg) 31 31 RDW (11.6 - 14.8 %) 19.5 20.0 Neut % (Auto) (50 - 75 %) 16 15 Lymph % (Auto) (25 - 40 %) 16 13 [place] % (Auto) (3 - 14 %) 38 1 Eos % (Auto) (0 - 4 %) 0 0 Baso % (Auto) (0 - 2 %) 0 0 Band Neutrophils % (0 - 8 %) 30 52 Metamyelocytes % (0 - 1 %) 0 19 Myelocytes (0 - 1 %) 0 0 Nucleated RBCs (0 - 1) 3 1 Other Cell Type 0 0 Plt Count, EDTA (150 - 400 K/uL) 130 93 Anisocytosis (manual) 2+ 2+ PUBS MCHC (31 - 37 g/dL) 33 34 /08/01 0545 0545 Chemistry Lactic Acid (0.4 - 2.0 mmol/L) 2.0 Prealbumin Pending Chest x-ray 1. Adequate position of right-sided PICC line. 2. Findings called to Martha from the PICC line team. 3. Evidence of fluid overload. 4. Emphysema. Assessment and Plan Problem List 1. Bowel perforation Plan Patient is followed by general surgery. Patient with status post ileostomy. Patient having her production. Patient having less urine output. Bolus 500 cc normal saline. Followed by any IV Lasix 20 mg 2. STATUS POST SUBTOTAL COLECTOMY Plan Ileostomy in place. Followed by surgery with good output. Stabilizing. 3. Hypokalemia Plan Potassium stable. 4. Hypomagnesemia Plan Need replacement of magnesium. 5. Leukopenia Plan Cell counts on the rise. No longer leukopenic. Bands are at 54. 6. Peritonitis (acute) generalized Plan Peritonitis with gram-negative luke. Starting ceftriaxone 2 g IV every 24 hours. Volume overload. Switch showing up on chest x-ray. 7. Pneumoperitoneum of unknown etiology Plan Resolving 8. Oligouria Plan Assessment adequate urinary output. [place] boluses normal saline. Showing mild fluid overload. Gave 20 mg Lasix now followed by Lasix every 12 hours. Monitor fluid balance closely. Starting TPN for adequate nutrition which will also add to the overall fluid intake 9. Alcohol abuse Plan Alcohol abuse. Patient on Peridex overnight for sedation. Patient with alcohol withdrawal symptoms. Patient on alcohol withdrawal protocol. 10. Volume overload Plan Judicious diuresis. Monitor intake and output. Give 20 mg Lasix now. Current status: Poor Anticipated discharge date: 3-4 days Anticipated discharge placement: Home with home health versus SNF Patient care time: Time spent in chart review, patient interview, physical exam, CPOE, and care documentation: 35 minutes Visit to patient today: 3 Complexity of care: Moderate E&M Codes Rounding: Inpt-High/[id number]
--- NOTE | 2016-08-01 15:36 | DIAGNOSTIC IMAGING REPORT ---
PROCEDURE: XR CHEST 1 VIEW INDICATION: picc placement TECHNIQUE: Single view chest. 1525 hours COMPARISON: 08/01/2016 FINDINGS: There is a new right-sided PICC line. The tip is at the cavoatrial junction. The cardiomediastinal contour and central vessels are stable. Hyperlucent lungs with coarse interstitial markings. [place] B lines evident along the right lateral thorax. Tiny right pleural effusion, stable. No pneumothorax. No dense consolidations. IMPRESSION: 1. Adequate position of right-sided PICC line. 2. Findings called to Martha from the PICC line team. 3. Evidence of fluid overload. 4. Emphysema.
[2016-08-02] VITALS (22 sets, daily range): BP systolic 97–115; BP diastolic 58–88
--- NOTE | 2016-08-02 09:03 | Progress Note ---
Subjective General Note Date: 08/02/2016. Admission Date: 07/31/2016 Hospital Day: 3 PCP: Status: Inpatient CCU Advanced Directive: Full code Room: 303 60-year-old female presented to the emergency room complaining of several months history of abdominal distention. Acute changes over the past 24 hours. Admitted with a perforated viscus. Seen by Dr. Jordan; who performed emergent laporoscopy vs open laporotaomy. Procedure included an open laparotomy. Dr. Jordan found that there was pus in the abdomen. Patient had a washout patient has discharge from the OR with an ileostomy. She was seen this morning with asked to a production into the ileostomy. Patient was cleared for sepsis.. Patient however overnight had what appeared to be alcohol withdrawal symptoms. Patient had periods of hallucination. Patient was placed on Pradexa as a drip to sedate and control her alcohol withdrawal symptoms. Patient had less than adequate response. Patient remained hypersomnolent during the day. No seizures blood pressure was well controlled. Discussed starting patient on TPN for nutritional support. He showed poor urine output during the day. Patient was given multiple sinus boluses. Followed by Tyler Subjective: Patient is a little more awake today. She remains on 0.6, Pradexa; is responding to current therapy. Patient's urine output is improved. Patient producing well from her ileostomy Constitutional Denies: Chills. Physical Exam Vital Signs / I&Os Vital Signs Date Time Temp Pulse Resp B/P Pulse O2 O2 Flow FiO2 Ox Delivery Rate 08/02 0820 72 23 107/79 100 Nasal 1.0 Cannula 08/02 0714 97.3 08/02 0711 71 24 110/82 100 Nasal 1.0 Cannula 08/02 0600 96.1 68 20 113/88 99 Nasal 1.0 Cannula 08/02 0500 68 21 109/83 97 Nasal 1.0 Cannula 08/02 0400 69 22 108/84 95 Nasal 1.0 Cannula 08/02 0300 69 110/84 95 08/02 0200 97.0 70 23 109/83 94 Nasal 1.0 Cannula 08/02 0020 96.8 08/02 0000 73 23 111/84 92 08/01 2300 74 23 113/93 92 08/01 2218 96.3 78 25 129/98 92 Nasal 1.0 Cannula 08/01 2110 73 23 116/83 94 Nasal 1.0 Cannula 08/02 1999 73 24 116/83 95 Nasal 1.0 Cannula 08/01 1945 Nasal 1.0 Cannula 08/01 1923 1.0 08/01 1910 69 21 114/82 99 Nasal 1.0 Cannula 08/01 1801 97.2 75 20 98 Nasal 1.0 Cannula 08/01 1712 97.0 75 20 117/79 94 Room Air 08/01 1539 97.0 68 17 114/83 99 Nasal 1.0 Cannula 08/01 1400 97.3 72 18 104/86 100 Room Air 08/01 1315 65 19 114/83 98 Room Air 08/01 1236 110/80 08/01 1158 64 19 98 Room Air 08/01 1119 63 17 107/78 98 Room Air 08/01 1034 97.2 64 18 105/80 100 Room Air 08/01 0922 68 15 87/61 99 Room Air I&O 08/01 0800 08/01 1600 08/02 0000 Intake Total 885 0 2341 Output Total 304 082 4410 Balance 660 -586 1291 General Appearance hypersomnolent, arousable, confused Lungs decreased breath sounds, crackles Cardiovascular Normal S1 and S2 Abdomen wrapped with ileostomy. Extremities No cyanosis, No clubbing Psych/Mental Status Confused LAB Results Laboratory Tests 08/01 08/02 08/02 1551 0410 0410 Chemistry Plasma Sodium (136 - 145 mmol/L) 148 Plasma Potassium (3.5 - 5.1 mmol/L) 3.2 Plasma Chloride (98 - 107 mmol/L) 112 CO2 (Enzymatic) (21 - 32 mmol/L) 21 BUN (7 - 18 mg/dL) 21 Creatinine (0.6 - 1.3 mg/dL) 0.7 Est GFR ( Amer) (mL/min) >60 Est GFR (Non-Af Amer) (mL/min) >60 Glucose (70 - 110 mg/dL) 86 Plasma Calcium (8.5 - 10.1 mg/dL) 7.4 Phosphorus (2.5 - 4.9 mg/dL) 2.5 2.6 Plasma Magnesium (1.8 - 2.4 mg/dL) 2.0 Total Bilirubin (0.0 - 1.0 mg/dL) 0.3 AST (15 - 37 U/L) 146 ALT (12 - 78 U/L) 65 Alkaline Phosphatase (46 - 116 U/L) 49 Ammonia (11 - 32 umol/L) 19 Total Protein (6.4 - 8.2 g/dL) 4.4 Albumin (3.3 - 5.0 g/dL) 1.7 Hematology WBC (4.5 - 11.5 K/uL) 7.7 RBC (4.00 - 5.20 M/uL) 3.62 Hgb (12.0 - 16.0 gm/dL) 11.0 Hct (36.0 - 46.0 %) 33.8 MCV (80 - 100 fL) 93 MCH (26 - 34 pg) 30 RDW (11.6 - 14.8 %) 20.1 Neut % (Auto) (50 - 75 %) 55 Lymph % (Auto) (25 - 40 %) 16 [place] % (Auto) (3 - 14 %) 3 Eos % (Auto) (0 - 4 %) 0 Baso % (Auto) (0 - 2 %) 0 Band Neutrophils % (0 - 8 %) 26 Metamyelocytes % (0 - 1 %) 0 Myelocytes (0 - 1 %) 0 Other Cell Type 0 Plt Count, EDTA (150 - 400 K/uL) 128 Anisocytosis (manual) 2+ PUBS MCHC (31 - 37 g/dL) 33 Assessment and Plan Problem List 1. Peritonitis (acute) generalized Plan Peritonitis, resolving. Patient had recent washout and perforated bowel. She is now status post ileostomy. Gram-negative luke in the peritoneum. She currently on 2 g ceftriaxone daily Adding metronidazole 500 mg every 8 hours. Patient is on gentle diuresis, Diet is being advanced. 2. Bowel perforation Plan Followed by general surgery. Status post bowel perforation, now with ileostomy. 3. STATUS POST SUBTOTAL COLECTOMY Plan General surgery managing the ileostomy. 4. Oligouria Plan The urine is picked up well. Patient currently on by mouth fluids along with IV fluids. Significant starting TPN. Lasix 20 mg twice a day for volume overload. May consider doing this for another day or 2 and then discontinue 5. Volume overload Plan Secondary to the above. There is some fluid overload. This showed up in the lungs. Continue on the Lasix 20 mg twice a day for the next 24-48 hours. 6. Pneumoperitoneum of unknown etiology Plan Pneumoperitoneum initially found on x-ray during the initial evaluation. 7. Hypokalemia Plan Watching potassium. Currently stable 8. Hypomagnesemia Plan Replace as needed. 9. Alcohol abuse Plan Patient currently on alcohol withdrawal protocol. Stable on the Primaxin. Consider weaning off when appropriate Current status: Poor Anticipated discharge date: 3-4 days Anticipated discharge placement: Home with home health versus SNF Patient care time: Time spent in chart review, patient interview, physical exam, CPOE, and care documentation: 35-40 minutes Visit to patient today: 2 Complexity of care: Moderate to high complexity E&M Codes Rounding: Inpt-High/26000
--- NOTE | 2016-08-02 13:55 | Progress Note ---
Subjective General Pt is s/p ileostomy for perforation. She has gone into DT's being managed by the hospitalist. She is conversent but not oriented, her did most of the talking. Physical Exam Vital Signs / I&Os Vital Signs Date Time Temp Pulse Resp B/P Pulse O2 O2 Flow FiO2 Ox Delivery Rate 08/02 1335 72 21 113/79 94 Room Air 08/02 1200 72 100/58 08/02 1115 97.5 72 22 115/78 92 Room Air 08/02 0900 1.0 08/02 0900 97/81 08/02 0820 72 23 107/79 100 Nasal 1.0 Cannula 08/02 0714 97.3 08/02 0711 71 24 110/82 100 Nasal 1.0 Cannula 08/02 0600 96.1 68 20 113/88 99 Nasal 1.0 Cannula 08/02 0500 68 21 109/83 97 Nasal 1.0 Cannula 08/02 0400 69 22 108/84 95 Nasal 1.0 Cannula 08/02 0300 69 110/84 95 08/02 0200 97.0 70 23 109/83 94 Nasal 1.0 Cannula 08/02 0020 96.8 08/02 0000 73 23 111/84 92 08/01 2300 74 23 113/93 92 08/01 2218 96.3 78 25 129/98 92 Nasal 1.0 Cannula 08/01 2110 73 23 116/83 94 Nasal 1.0 Cannula 08/01 2000 73 24 116/83 95 Nasal 1.0 Cannula 08/01 1945 Nasal 1.0 Cannula 08/01 1923 1.0 08/01 1910 69 21 114/82 99 Nasal 1.0 Cannula 08/01 1801 97.2 75 20 98 Nasal 1.0 Cannula 08/01 1712 97.0 75 20 117/79 94 Room Air 08/01 1539 97.0 68 17 114/83 99 Nasal 1.0 Cannula 08/01 1400 97.3 72 18 104/86 100 Room Air I&O 08/01 0800 08/01 1600 08/02 0000 Intake Total 885 0 2341 Output Total 867 578 8611 Balance 660 -586 1291 General Appearance Alert, Cooperative (DT's) Abdomen Soft, No tenderness, copious ileostomy output, pt. is tolerating limited po clear liquids. Assessment and Plan Problem List 1. Peritonitis (acute) generalized Plan increase diet, add boost PO
[2016-08-03] VITALS (20 sets, daily range): BP systolic 91–125; BP diastolic 60–79
--- NOTE | 2016-08-03 12:04 | Progress Note ---
Subjective General Pt. is post ileostomy, now little more oriented-coming off DT's. Physical Exam Vital Signs / I&Os Vital Signs Date Time Temp Pulse Resp B/P Pulse O2 O2 Flow FiO2 Ox Delivery Rate 08/03 1010 97.3 75 23 122/77 98 Room Air 06 1007 75 25 120/75 96 Room Air 08/03 0816 70 21 108/78 97 Room Air 08/03 0800 Room Air 08/03 0714 97.5 76 23 110/70 97 Room Air 08/03 0549 98.4 71 25 109/71 96 Room Air 08/03 0510 77 23 111/73 95 Room Air 08/03 0417 77 23 108/74 96 Room Air 08/03 0315 97.9 77 25 103/73 97 Room Air 08/03 0228 78 26 110/72 97 Room Air 08/03 0115 77 27 110/75 98 Room Air 08/03 0010 82 29 112/75 97 Room Air 08/02 2310 97.9 77 27 112/73 94 Room Air 08/02 2159 81 24 103/72 98 Room Air 08/02 2106 76 24 111/76 98 Room Air 08/02 2009 97.7 83 25 100/71 98 Room Air 08/02 1929 97.3 08/02 1918 1.0 06 1913 83 26 101/68 96 Room Air 08/02 1823 97.3 79 21 103/75 96 Room Air 08/02 1737 82 21 108/81 94 Room Air 08/02 1620 97.0 75 21 106/71 94 Room Air 08/02 1507 97.3 78 19 99/66 95 Room Air 08/02 1417 97.3 76 20 103/72 93 Room Air 08/02 1335 72 21 113/79 94 Room Air 08/02 1200 72 100/58 I&O 08/02 0800 08/02 1600 08/03 0000 Intake Total 9833 737 8249 Output Total 489 480 3711 Balance 720 254 288 General Appearance No acute distress Abdomen Normal bowel sounds, positive ileostomy outpu Assessment and Plan Problem List 1. STATUS POST SUBTOTAL COLECTOMY Plan advance PO 2. Hypokalemia Plan Pt has KCL replacement ordered already.
--- NOTE | 2016-08-03 12:04 | Progress Note ---
Subjective General Pt. is post ileostomy, now little more oriented-coming off DT's. Physical Exam Vital Signs / I&Os Vital Signs Date Time Temp Pulse Resp B/P Pulse O2 O2 Flow FiO2 Ox Delivery Rate 08/03 1010 97.3 75 23 122/77 98 Room Air 06 1007 75 25 120/75 96 Room Air 08/03 0816 70 21 108/78 97 Room Air 08/03 0800 Room Air 08/03 0714 97.5 76 23 110/70 97 Room Air 08/03 0549 98.4 71 25 109/71 96 Room Air 08/03 0510 77 23 111/73 95 Room Air 08/03 0417 77 23 108/74 96 Room Air 08/03 0315 97.9 77 25 103/73 97 Room Air 08/03 0228 78 26 110/72 97 Room Air 08/03 0115 77 27 110/75 98 Room Air 08/03 0010 82 29 112/75 97 Room Air 08/02 2310 97.9 77 27 112/73 94 Room Air 08/02 2159 81 24 103/72 98 Room Air 08/02 2106 76 24 111/76 98 Room Air 08/02 2009 97.7 83 25 100/71 98 Room Air 08/02 1929 97.3 08/02 1918 1.0 06 1913 83 26 101/68 96 Room Air 08/02 1823 97.3 79 21 103/75 96 Room Air 08/02 1737 82 21 108/81 94 Room Air 08/02 1620 97.0 75 21 106/71 94 Room Air 08/02 1507 97.3 78 19 99/66 95 Room Air 08/02 1417 97.3 76 20 103/72 93 Room Air 08/02 1335 72 21 113/79 94 Room Air 08/02 1200 72 100/58 I&O 08/02 0800 08/02 1600 08/03 0000 Intake Total 2344 891 8653 Output Total 180 763 3378 Balance 720 254 288 General Appearance No acute distress Abdomen Normal bowel sounds, positive ileostomy outpu Assessment and Plan Problem List 1. STATUS POST SUBTOTAL COLECTOMY Plan advance PO 2. Hypokalemia Plan Pt has KCL replacement ordered already.
--- NOTE | 2016-08-03 14:38 | Progress Note ---
Subjective General Patient seen and examined. Patients symptoms of alcohol withdrawal have abated. Currently patients precedex drip was discountinued. Patient is still persistently confused and can not comprehend that she is in the hospital, nor is she able to realize the events that transpired before the during surgery. Constitutional Other (too confused to provide answer). Denies: Fever, Chills, Sweats, Weakness , Malaise. Physical Exam General Appearance Alert, No acute distress HEENT Normal exam Lungs Clear to auscultation Cardiovascular Regular rate and rhythm, Normal S1 and S2, No murmurs, gallops, rubs Abdomen Normal bowel sounds, Soft, ileostomy working well Extremities No edema, Normal pulses, No tenderness Skin No Breakdown, No Significant Lesions Psych/Mental Status Confused Assessment and Plan Problem List 1. STATUS POST SUBTOTAL COLECTOMY Plan - ielostomy working well - will attempt to teach patient about ostomy care - will monitor electrolyte status closely 2. Hypomagnesemia Plan - stable 3. Hypokalemia Plan - stable 4. Bowel perforation 5. Alcohol abuse Plan - precedex drip is dc'd - pt has persistent confusion - unsure whether alcohol related or not - no symptoms of alcohol withdrawal currently
[2016-08-04 02:42] VITALS: BP 107/73; BP 82/46
[2016-08-04 06:32] VITALS: BP 106/65
[2016-08-04 10:21] VITALS: BP 105/65
--- NOTE | 2016-08-04 14:46 | Progress Note ---
Subjective General Patient seen and examined. Patient has no acute events overnight. Patient's ileostomy is working well with a significant amount of output. Patient additionally is persistently confused. Currently patient is ambulating well and voiding well. We'll look to discharge patient once assessed by physical therapy. Constitutional Denies: Fever, Chills, Sweats, Weakness, Malaise, Other. ENT Denies: Ear Pain, Ear Discharge, Nose Pain, Nasal Discharge, Nasal Congestion, Mouth Pain, Mouth Swelling, Throat Pain, Throat Swelling, Other. Respiratory Denies: Cough, Dry, SOB w/exertion, Wheezing, Hemoptysis, Pleuritic Pain, Sputum , Other. Cardiovascular Denies: Chest Pain, Palpitations, Orthopnea, PND, Edema, Light-headedness, Other. Gastrointestinal Denies: Nausea, Vomiting, Abdominal Pain, Diarrhea, Constipation, Melena, Hematochezia, Other. Genitourinary Denies: Dysuria, Frequency, Incontinence, Hematuria, Retention, Other. Musculoskeletal Denies: Neck Pain, Shoulder Pain, Arm Pain, Back Pain, Hand Pain, Leg Pain, Foot Pain, Other. Skin Denies: Rash, Lesions, Jaundice, Bruising, Other. Physical Exam Vital Signs / I&Os Vital Signs Date Time Temp Pulse Resp B/P Pulse O2 O2 Flow FiO2 Ox Delivery Rate 08/04 1021 98.6 82 18 105/65 95 Room Air 08/04 0632 99.0 102 17 106/65 99 Room Air 08/04 0327 98.1 08/04 0242 107/73 Room Air 08/03 2212 98.1 97 18 103/69 99 Room Air 08/03 2003 97.3 18 101/79 100 Room Air 08/03 1912 97.5 88 20 106/77 97 Room Air 08/03 1802 97.5 93 25 110/75 93 Room Air 08/03 1713 98.1 93 25 91/60 91 Room Air 08/03 1613 97.3 95 21 113/78 96 Room Air 08/03 1505 97.3 96 25 109/73 97 Room Air I&O 08/03 0800 08/03 1600 08/04 0000 Intake Total 1486 2403 Output Total 2001 1400 1390 Balance -516 -1400 1013 General Appearance Alert, Oriented X3, No acute distress HEENT Atraumatic, PERRLA, Moist mucous membranes Lungs Clear to auscultation, Normal air movement Neck No JVD, No masses, No thyromegaly Cardiovascular Regular rate and rhythm, No murmurs, gallops, rubs Abdomen Soft, No tenderness, No rebound, No hepatosplenomegaly Extremities No clubbing, No edema, Normal pulses, No tenderness Skin No Breakdown Psych/Mental Status Confused LAB Results Laboratory Tests 08/04 0410 Chemistry Plasma Sodium (136 - 145 mmol/L) 143 Plasma Potassium (3.5 - 5.1 mmol/L) 2.9 Plasma Chloride (98 - 107 mmol/L) 108 CO2 (Enzymatic) (21 - 32 mmol/L) 28 BUN (7 - 18 mg/dL) 7 Creatinine (0.6 - 1.3 mg/dL) 0.5 Est GFR ( Amer) (mL/min) >60 Est GFR (Non-Af Amer) (mL/min) >60 Glucose (70 - 110 mg/dL) 102 Plasma Calcium (8.5 - 10.1 mg/dL) 7.4 Plasma Magnesium (1.8 - 2.4 mg/dL) 1.2 Total Bilirubin (0.0 - 1.0 mg/dL) 0.3 AST (15 - 37 U/L) 68 ALT (12 - 78 U/L) 50 Alkaline Phosphatase (46 - 116 U/L) 41 Total Protein (6.4 - 8.2 g/dL) 4.0 Albumin (3.3 - 5.0 g/dL) 1.7 Hematology WBC (4.5 - 11.5 K/uL) 9.4 RBC (4.00 - 5.20 M/uL) 3.44 Hgb (12.0 - 16.0 gm/dL) 10.5 Hct (36.0 - 46.0 %) 31.8 MCV (80 - 100 fL) 93 MCH (26 - 34 pg) 31 RDW (11.6 - 14.8 %) 19.4 Neut % (Auto) (50 - 75 %) 84.9 Lymph % (Auto) (25 - 40 %) 10.3 [place] % (Auto) (3 - 14 %) 4.3 Eos % (Auto) (0 - 4 %) 0.4 Baso % (Auto) (0 - 2 %) 0.1 Plt Count, EDTA (150 - 400 K/uL) 154 PUBS MCHC (31 - 37 g/dL) 33 Assessment and Plan Problem List 1. Peritonitis (acute) generalized Plan Unknown etiology behind small bowel perforation that led to peritonitis Patient is status post subtotal colectomy Currently patient is doing well, no evidence of infection We'll continue with antibiotics for a total of 7 days duration No leukocytosis noted at the moment No evidence of intra-abdominal pathology this would suggest infection 2. STATUS POST SUBTOTAL COLECTOMY Plan Patient's ileostomy is putting out 1.7 L yesterday We'll continue to trend ileostomy output If continues to have eye output will look to have mitigating substances ordered Otherwise patient's ileostomy is functioning very well Patient able to tolerate a regular diet at the moment 3. Hypokalemia Plan Secondary to high volume output from ileostomy We'll continue to obtain potassium values daily We'll monitor for other electrolyte abnormalities 4. Leukopenia Plan No evidence of leukopenia currently Patient able to mount a response to infections currently We'll continue to obtain daily CBCs
[2016-08-04 14:53] VITALS: BP 101/81
[2016-08-04 18:56] VITALS: BP 118/75
[2016-08-04 22:58] VITALS: BP 130/90
[2016-08-05 03:38] VITALS: BP 108/66
[2016-08-05 06:35] VITALS: BP 106/78
--- NOTE | 2016-08-05 07:04 | Progress Note ---
Subjective General 60-year-old female status post exploratory laparotomy with terminal ileectomy and proximal sigmoid secondary to perforation of previous anastomosis. Postop day 5. Still having problems with alcohol withdrawal. Requiring Ativan for sedation. Tolerating by mouth. Ambulatory. Physical Exam Vital Signs / I&Os Vital Signs Date Time Temp Pulse Resp B/P Pulse O2 O2 Flow FiO2 Ox Delivery Rate 08/05 0635 98.2 95 18 106/78 93 Room Air 0.0 08/05 0338 93 18 108/66 93 Room Air 08/04 2258 98.1 99 130/90 98 Room Air 08/04 2009 Room Air 08/04 1856 98.1 65 20 118/75 93 Room Air 08/04 1453 97.9 56 18 101/81 92 Room Air 08/04 1021 98.6 82 18 105/65 95 Room Air I&O 08/04 0800 08/04 1600 08/05 0000 Intake Total 5655 763 7834 Output Total 1375 1900 1000 Balance 308 -966 761 General Appearance Alert, No acute distress Lungs Clear to auscultation Cardiovascular Regular rate and rhythm Abdomen Normal bowel sounds, ileostomy functioning. Staple line clean. No evidence of cellulitis. Extremities No clubbing, No edema Skin warm and dry Neurological confused at times secondary to alcohol withdrawal Psych/Mental Status Confused LAB Results Peritoneal cultures at time of surgery positive for Escherichia coli and Bacteroides Laboratory Tests 08/05 08/05 0515 0515 Chemistry Plasma Sodium (136 - 145 mmol/L) 138 Plasma Potassium (3.5 - 5.1 mmol/L) 3.1 Plasma Chloride (98 - 107 mmol/L) 105 CO2 (Enzymatic) (21 - 32 mmol/L) 26 BUN (7 - 18 mg/dL) 1 Creatinine (0.6 - 1.3 mg/dL) 0.5 Est GFR ( Amer) (mL/min) >60 Est GFR (Non-Af Amer) (mL/min) >60 Glucose (70 - 110 mg/dL) 103 Plasma Calcium (8.5 - 10.1 mg/dL) 7.3 Total Bilirubin (0.0 - 1.0 mg/dL) 0.3 AST (15 - 37 U/L) 54 ALT (12 - 78 U/L) 44 Alkaline Phosphatase (46 - 116 U/L) 50 Ammonia (11 - 32 umol/L) 5 Total Protein (6.4 - 8.2 g/dL) 4.5 Albumin (3.3 - 5.0 g/dL) 2.0 Hematology WBC (4.5 - 11.5 K/uL) 11.5 RBC (4.00 - 5.20 M/uL) 3.29 Hgb (12.0 - 16.0 gm/dL) 10.0 Hct (36.0 - 46.0 %) 30.3 MCV (80 - 100 fL) 92 MCH (26 - 34 pg) 31 RDW (11.6 - 14.8 %) 19.2 Neut % (Auto) (50 - 75 %) 80.8 Lymph % (Auto) (25 - 40 %) 9.3 [place] % (Auto) (3 - 14 %) 8.3 Eos % (Auto) (0 - 4 %) 0.7 Baso % (Auto) (0 - 2 %) 0.9 Plt Count, EDTA (150 - 400 K/uL) 195 PUBS MCHC (31 - 37 g/dL) 33 Assessment and Plan Problem List 1. Bowel perforation Plan Surgically stable. Discharge as per hospitalist.
[2016-08-05 10:38] VITALS: BP 116/78
--- NOTE | 2016-08-05 13:47 | Progress Note ---
Subjective General Patient seen and examined. Patient is doing well without any complaints overnight. Patient has adequate ostomy output which has decreased since yesterday. Constitutional Denies: Fever, Chills, Sweats, Weakness, Malaise, Other. Respiratory Denies: Cough, Dry, SOB w/exertion, Wheezing, Hemoptysis, Pleuritic Pain, Sputum , Other. Cardiovascular Denies: Chest Pain, Palpitations, Orthopnea, PND, Edema, Light-headedness, Other. Gastrointestinal Denies: Nausea, Vomiting, Abdominal Pain, Diarrhea, Constipation, Melena, Hematochezia, Other. Musculoskeletal Denies: Neck Pain, Shoulder Pain, Arm Pain, Back Pain, Hand Pain, Leg Pain, Foot Pain, Other. Skin Denies: Rash, Lesions, Jaundice, Bruising, Other. Physical Exam Vital Signs / I&Os Vital Signs Date Time Temp Pulse Resp B/P Pulse O2 O2 Flow FiO2 Ox Delivery Rate 08/05 1038 98.1 97 18 116/78 100 Room Air 08/05 0635 98.2 95 18 106/78 93 Room Air 0.0 08/05 0338 93 18 108/66 93 Room Air 08/04 2258 98.1 99 130/90 98 Room Air 08/04 2009 Room Air 08/04 1856 98.1 65 20 118/75 93 Room Air 08/04 1453 97.9 56 18 101/81 92 Room Air I&O 08/04 0800 08/04 1600 08/05 0000 Intake Total 2724 770 3961 Output Total 1375 1900 1000 Balance 308 -966 761 General Appearance Alert, No acute distress HEENT Atraumatic, PERRLA, Moist mucous membranes Lungs Clear to auscultation Neck Supple, No JVD, No masses Cardiovascular Regular rate and rhythm, Normal S1 and S2, No murmurs, gallops, rubs Abdomen Soft, - ostomy functioning appropriately Extremities No edema, Normal pulses, No tenderness Skin No Breakdown, No Significant Lesions Neurological Normal speech, Sensation intact, Cranial nerves intact, No lateralizing signs Psych/Mental Status Mood normal LAB Results Laboratory Tests 08/05 08/05 0515 0515 Chemistry Plasma Sodium (136 - 145 mmol/L) 138 Plasma Potassium (3.5 - 5.1 mmol/L) 3.1 Plasma Chloride (98 - 107 mmol/L) 105 CO2 (Enzymatic) (21 - 32 mmol/L) 26 BUN (7 - 18 mg/dL) 1 Creatinine (0.6 - 1.3 mg/dL) 0.5 Est GFR ( Amer) (mL/min) >60 Est GFR (Non-Af Amer) (mL/min) >60 Glucose (70 - 110 mg/dL) 103 Plasma Calcium (8.5 - 10.1 mg/dL) 7.3 Total Bilirubin (0.0 - 1.0 mg/dL) 0.3 AST (15 - 37 U/L) 54 ALT (12 - 78 U/L) 44 Alkaline Phosphatase (46 - 116 U/L) 50 Ammonia (11 - 32 umol/L) 5 Total Protein (6.4 - 8.2 g/dL) 4.5 Albumin (3.3 - 5.0 g/dL) 2.0 Hematology WBC (4.5 - 11.5 K/uL) 11.5 RBC (4.00 - 5.20 M/uL) 3.29 Hgb (12.0 - 16.0 gm/dL) 10.0 Hct (36.0 - 46.0 %) 30.3 MCV (80 - 100 fL) 92 MCH (26 - 34 pg) 31 RDW (11.6 - 14.8 %) 19.2 Neut % (Auto) (50 - 75 %) 80.8 Lymph % (Auto) (25 - 40 %) 9.3 [place] % (Auto) (3 - 14 %) 8.3 Eos % (Auto) (0 - 4 %) 0.7 Baso % (Auto) (0 - 2 %) 0.9 Plt Count, EDTA (150 - 400 K/uL) 195 PUBS MCHC (31 - 37 g/dL) 33 Assessment and Plan Problem List 1. STATUS POST SUBTOTAL COLECTOMY Plan Ostomy functioning well No evidence of infection around ostomy site Surgical incisions healing well Continue with ostomy teaching We'll most likely need to go to a senior care facility due to ostomy care 2. Oligouria Plan Resolved Patient is having adequate urine ostomy output 3. Hypokalemia Plan Secondary to high output from the ostomy site We'll replace K daily We'll obtain daily CMP is 4. Alcohol abuse Plan Patient has significant history of alcohol abuse Patient is currently out of withdrawal symptoms Heart the patient is still very much impulsive and confused We'll resume home medications including clonazepam and amitriptyline
[2016-08-05 14:11] VITALS: BP 102/74
[2016-08-05 18:44] VITALS: BP 104/63
--- NOTE | 2016-08-06 07:14 | Progress Note ---
Subjective General 60-year-old female postop day 6 status post exploratory laparotomy and partial terminal ileectomy and partial proximal sigmoidectomy with diverting ileostomy. She needs to have problems with alcohol withdrawal and infusion irritation acquiring one-to-one nursing care. Not complaining of any abdominal symptoms. Tolerating by mouth. Ileostomy functioning fine Physical Exam Vital Signs / I&Os Vital Signs Date Time Temp Pulse Resp B/P Pulse O2 O2 Flow FiO2 Ox Delivery Rate 08/05 1847 98.2 08/05 1844 98 16 104/63 100 Room Air 08/05 1411 98.2 101 20 102/74 99 Room Air 08/05 1038 98.1 97 18 116/78 100 Room Air I&O 08/05 0800 08/05 1600 08/06 0000 Intake Total 1218 1300 Output Total 725 1352 1300 Balance General Appearance somnolent secondary to medication HEENT Moist mucous membranes Lungs Clear to auscultation Neck No JVD Cardiovascular Regular rate and rhythm Abdomen ileostomy functioning. Stable and clean. No evidence of cellulitis. Positive bowel sounds. Extremities No edema Skin warm and dry Neurological respond appropriately LAB Results White count slowly creeping up to Laboratory Tests 08/06 0430 Chemistry Plasma Sodium (136 - 145 mmol/L) 139 Plasma Potassium (3.5 - 5.1 mmol/L) 3.4 Plasma Chloride (98 - 107 mmol/L) 106 CO2 (Enzymatic) (21 - 32 mmol/L) 27 BUN (7 - 18 mg/dL) 1 Creatinine (0.6 - 1.3 mg/dL) 0.5 Est GFR ( Amer) (mL/min) >60 Est GFR (Non-Af Amer) (mL/min) >60 Glucose (70 - 110 mg/dL) 113 Plasma Calcium (8.5 - 10.1 mg/dL) 7.2 Total Bilirubin (0.0 - 1.0 mg/dL) 0.3 AST (15 - 37 U/L) 29 ALT (12 - 78 U/L) 35 Alkaline Phosphatase (46 - 116 U/L) 44 Total Protein (6.4 - 8.2 g/dL) 4.6 Albumin (3.3 - 5.0 g/dL) 1.9 Hematology WBC (4.5 - 11.5 K/uL) 14.7 RBC (4.00 - 5.20 M/uL) 3.31 Hgb (12.0 - 16.0 gm/dL) 10.2 Hct (36.0 - 46.0 %) 30.4 MCV (80 - 100 fL) 92 MCH (26 - 34 pg) 31 RDW (11.6 - 14.8 %) 20.4 Neut % (Auto) (50 - 75 %) 85.9 Lymph % (Auto) (25 - 40 %) 5.8 [place] % (Auto) (3 - 14 %) 7.4 Eos % (Auto) (0 - 4 %) 0.7 Baso % (Auto) (0 - 2 %) 0.2 Plt Count, EDTA (150 - 400 K/uL) 258 RBC Morphology (39152 A) HYPOCHROMIA +1 PUBS MCHC (31 - 37 g/dL) 34 Assessment and Plan Problem List 1. STATUS POST SUBTOTAL COLECTOMY Plan Stable postop. Continue monitoring treatment of alcohol withdrawal. We will DC cash tomorrow and replaced with Steri-Strips
[2016-08-06 12:19] VITALS: BP 96/62
[2016-08-06 14:34] VITALS: BP 95/56
--- NOTE | 2016-08-06 15:33 | Progress Note ---
Subjective General Patient seen and examined. Patient is doing very well, patient was seen to be very agitated last night. Patient was trying to get, and was agitated. Patient had to have a constant one-on-one observer to prevent injury to herself. Patient is otherwise anxious to go home. She claims that she will learn how to use the ostomy itself Constitutional Denies: Fever, Chills, Sweats, Weakness, Malaise, Other. ENT Denies: Ear Pain, Ear Discharge, Nose Pain, Nasal Discharge, Nasal Congestion, Mouth Pain, Mouth Swelling, Throat Pain, Throat Swelling, Other. Respiratory Denies: Cough, Dry, SOB w/exertion, Wheezing, Hemoptysis, Pleuritic Pain, Sputum , Other. Cardiovascular Denies: Chest Pain, Palpitations, Orthopnea, PND, Edema, Light-headedness, Other. Gastrointestinal Denies: Nausea, Vomiting, Abdominal Pain, Diarrhea, Constipation, Melena, Hematochezia, Other. Genitourinary Denies: Dysuria, Frequency, Incontinence, Hematuria, Retention, Other. Musculoskeletal Denies: Neck Pain, Shoulder Pain, Arm Pain, Back Pain, Hand Pain, Leg Pain, Foot Pain, Other. Skin Denies: Rash, Lesions, Jaundice, Bruising, Other. Neurological Denies: Weakness, Numbness, Incoordination, Change in speech, Confusion, Seizures, Other. Physical Exam Vital Signs / I&Os Vital Signs Date Time Temp Pulse Resp B/P Pulse O2 O2 Flow FiO2 Ox Delivery Rate 08/06 1434 97.9 99 18 95/56 97 Room Air 08/06 1219 98.4 99 18 96/62 96 08/05 1847 98.2 08/05 1844 98 16 104/63 100 Room Air I&O 08/05 0800 08/05 1600 08/06 0000 Intake Total 1218 1300 Output Total 725 1352 1300 Balance General Appearance Alert, Oriented X3, No acute distress HEENT Atraumatic, PERRLA, Moist mucous membranes Lungs Clear to auscultation, Normal air movement Neck No JVD, No masses, No thyromegaly, 2+ carotid pulse wo bruit Cardiovascular Normal S1 and S2, No murmurs, gallops, rubs Abdomen Soft, No tenderness, No masses Extremities No edema, Normal pulses, No tenderness Skin No Breakdown, No Significant Lesions Neurological Normal tone, Sensation intact, Cranial nerves intact, No lateralizing signs Psych/Mental Status Confused LAB Results Laboratory Tests 08/06 0430 Chemistry Plasma Sodium (136 - 145 mmol/L) 139 Plasma Potassium (3.5 - 5.1 mmol/L) 3.4 Plasma Chloride (98 - 107 mmol/L) 106 CO2 (Enzymatic) (21 - 32 mmol/L) 27 BUN (7 - 18 mg/dL) 1 Creatinine (0.6 - 1.3 mg/dL) 0.5 Est GFR ( Amer) (mL/min) >60 Est GFR (Non-Af Amer) (mL/min) >60 Glucose (70 - 110 mg/dL) 113 Plasma Calcium (8.5 - 10.1 mg/dL) 7.2 Total Bilirubin (0.0 - 1.0 mg/dL) 0.3 AST (15 - 37 U/L) 29 ALT (12 - 78 U/L) 35 Alkaline Phosphatase (46 - 116 U/L) 44 Total Protein (6.4 - 8.2 g/dL) 4.6 Albumin (3.3 - 5.0 g/dL) 1.9 Hematology WBC (4.5 - 11.5 K/uL) 14.7 RBC (4.00 - 5.20 M/uL) 3.31 Hgb (12.0 - 16.0 gm/dL) 10.2 Hct (36.0 - 46.0 %) 30.4 MCV (80 - 100 fL) 92 MCH (26 - 34 pg) 31 RDW (11.6 - 14.8 %) 20.4 Neut % (Auto) (50 - 75 %) 85.9 Lymph % (Auto) (25 - 40 %) 5.8 [place] % (Auto) (3 - 14 %) 7.4 Eos % (Auto) (0 - 4 %) 0.7 Baso % (Auto) (0 - 2 %) 0.2 Plt Count, EDTA (150 - 400 K/uL) 258 RBC Morphology (36012 A) HYPOCHROMIA +1 PUBS MCHC (31 - 37 g/dL) 34 Assessment and Plan Problem List 1. STATUS POST SUBTOTAL COLECTOMY Plan Patient is doing well status post ileostomy Patient is able to tolerate a diet and has normal ostomy outputs. Patient is anxious to leave however the only thing preventing her from leaving his proper ostomy care at home Patient does not have any skilled needs at the moment however we are hesitant to send her out given her ostomy and inability to manage herself Patient is adamant that she can manage herself We'll train patient to do it yesterday and look for ability to manage ostomy 2. Anxiety Plan Patient has baseline anxiety Most likely exacerbated due to disease process We'll continue with clonazepam 3 times a day for the time being 3. Alcohol abuse Plan Patient is a significant drinker Patient came in here in alcohol withdrawal Patient was placed on Precedex drip which was subsequently discontinued Patient currently is in her baseline mentation She is confused at baseline and has difficulty to retain information thus everything is repeated to her multiple times in order for her to understand
[2016-08-06 18:53] VITALS: BP 90/55
[2016-08-07] VITALS: BP 100/68
[2016-08-07 04:37] VITALS: BP 113/77
[2016-08-07 06:57] VITALS: BP 90/64
--- NOTE | 2016-08-07 07:09 | Progress Note ---
Subjective General 60-year-old female postop day #7, status post laparotomy, resection of terminal ileum and proximal sigmoid and diverting ileostomy. Her problem has been on alcohol withdrawal. Patient is tolerating by mouth. The port. Not complaining of any abdominal complaints Physical Exam Vital Signs / I&Os Vital Signs Date Time Temp Pulse Resp B/P Pulse O2 O2 Flow FiO2 Ox Delivery Rate 08/07 0657 98.1 97 20 90/64 97 Room Air 08/07 0437 98.1 89 22 113/77 99 Room Air 08/07 0000 98.1 87 18 100/68 98 Room Air 08/06 1853 98.1 98 18 90/55 100 08/06 1434 97.9 99 18 95/56 97 Room Air 08/06 1219 98.4 99 18 96/62 96 I&O 08/06 0800 08/06 1600 08/07 0000 Intake Total 1245 360 Output Total 600 1650 1350 Balance 645 -1290 -1350 General Appearance Alert, Oriented X3, Cooperative, No acute distress HEENT Moist mucous membranes Lungs Clear to auscultation Neck No JVD Cardiovascular Regular rate and rhythm Abdomen Normal bowel sounds, nondistended. Incision site clean no cellulitis. [place] removed and replaced with Steri-Strips. Extremities No cyanosis, No clubbing, No edema Skin warm and dry Neurological No lateralizing signs Psych/Mental Status Mental status normal Assessment and Plan Problem List 1. Bowel perforation Plan Stable postop. DC home when necessary. Patient will need home health nursing/ stoma nurse and supplies. We will followup with her in approximately one week after discharge. Followup with primary care provider in 2 weeks
[2016-08-07 10:43] VITALS: BP 102/61
[2016-08-07 15:00] VITALS: BP 86/51
--- NOTE | 2016-08-07 16:02 | Progress Note ---
Subjective General Patient seen and examined. No acute events overnight, patient is behaving much more appropriately than previous. Multiple attempts were made to teach the patient ileostomy. Patient at this time does not seem like she is reliable this herself. We will have family meeting tomorrow to discuss plan of action upon discharge Constitutional Denies: Fever, Chills, Sweats, Weakness, Malaise, Other. Eyes Denies: Pain, Vision Change, Conjunctival Inflammation, Eyelid Inflammation, Redness, Other. Respiratory Denies: Cough, Dry, SOB w/exertion, Wheezing, Hemoptysis, Pleuritic Pain, Sputum , Other. Cardiovascular Denies: Chest Pain, Palpitations, Orthopnea, PND, Edema, Light-headedness, Other. Gastrointestinal Denies: Nausea, Vomiting, Abdominal Pain, Diarrhea, Constipation, Melena, Hematochezia, Other. Genitourinary Denies: Dysuria, Frequency, Incontinence, Hematuria, Retention, Other. Musculoskeletal Denies: Neck Pain, Shoulder Pain, Arm Pain, Back Pain, Hand Pain, Leg Pain, Foot Pain, Other. Skin Denies: Rash, Lesions, Jaundice, Bruising, Other. Neurological Denies: Weakness, Numbness, Incoordination, Change in speech, Confusion, Seizures, Other. Physical Exam Vital Signs / I&Os Vital Signs Date Time Temp Pulse Resp B/P Pulse O2 O2 Flow FiO2 Ox Delivery Rate 08/07 1500 98.4 97 20 86/51 97 Room Air 08/07 1043 99.1 90 19 102/61 100 Room Air 08/07 0657 98.1 97 20 90/64 97 Room Air 08/07 0437 98.1 89 22 113/77 99 Room Air 08/07 0000 98.1 87 18 100/68 98 Room Air 08/06 1853 98.1 98 18 90/55 100 I&O 08/06 0800 08/06 1600 08/07 0000 Intake Total 1245 360 Output Total 600 1650 1350 Balance 645 -1290 -1350 General Appearance Alert, No acute distress HEENT PERRLA, EOMI, Moist mucous membranes Lungs Clear to auscultation Neck No JVD, No masses Cardiovascular Regular rate and rhythm, Normal S1 and S2, No murmurs, gallops, rubs Abdomen Soft, No tenderness, No masses Extremities No edema, Normal pulses, No tenderness Skin No Breakdown Neurological Normal speech, Normal tone, Cranial nerves intact, No lateralizing signs Psych/Mental Status Mood normal Assessment and Plan Problem List 1. Peritonitis (acute) generalized Plan patient had evidence of small bowel perforation with associated peritonitis Patient underwent subtotal colectomy with ileostomy Patient's ileostomy is functioning well and patient is able to tolerate a diet Currently patient is stable enough for discharge 2. STATUS POST SUBTOTAL COLECTOMY Plan Surgical wound looks good Patient's cash were taken out today 3. Hypokalemia Plan Patient has persistent hypokalemia secondary to high ileostomy output Patient started on potassium chloride supplementation 10 mEq daily We'll continue to trend CMP 4. Alcohol abuse Plan Patient has an established history of alcohol abuse and benzodiazepine abuse Patient was initially alcohol withdrawal upon arrival after surgery however patient is mentating normally at the present time We'll continue to have Ativan on board as a precaution Patient urged him to drink again due to the inability to care for herself and her ileostomy
[2016-08-07 18:22] VITALS: BP 87/55
[2016-08-08 00:50] VITALS: BP 105/72
[2016-08-08 03:29] VITALS: BP 108/63
--- NOTE | 2016-08-08 05:31 | Progress Note ---
Subjective General Note Date: August 08, 2016 Admission Date: July 31, 2016 Hospital Day: 9 PCP: None Status: Inpatient, ACU Advanced Directive: FULL CODE Room: 303 Admission History: The patient is a 60-year-old white female with a significant past mental history of alcohol abuse/dependence, depression, insomnia, malignant melanoma, who presented to [facility] emergency department on the day of admission secondary to complaints of abdominal pain. [facility] ER evaluation was consistent with bowel perforation, pneumoperitoneum, and peritonitis. Secondary to the above, the patient was admitted by Denis Mercer M.D. for further evaluation and treatment. For other history present illness, past medical history, family history, social history, review of systems, and admission physical examination please see the patient's history and physical examination and ER visit note in the patient's medical record. Subjective: The patient states she is doing well today. Looking forward to discharge. No specific complaints at this time. Pain okay. Patient requests: None except early discharge Medications and Allergies Medications Current Medications Sig/Keyla Start time Last Medication Dose Route Stop Time Status Admin Potassium Chloride 10 MEQ DAILY 08/06 09 AC 08/07 PO 1000 Pantoprazole Sodium 40 MG DAILY@08/06 0600 AC 08/07 Sesquihydrate PO 0505 Amitriptyline HCl 50 MG QHS 08/05 2100 AC 08/07 PO 2048 Oxycodone/ 1 TAB Q4H PRN 08/05 1245 AC 08/06 Acetaminophen PO 2154 Clonazepam 1 MG QID 08/05 1200 AC 08/07 PO 2107 Nicotine 7 MG QAM 08/05 0930 AC 08/07 TOP 1000 Magnesium Chloride 535 MG TID 08/04 2200 AC 08/07 PO 2107 Dextrose/Sodium 1,000 ML ASDIRECTED 08/04 1900 AC 08/07 Chloride/Electrolyt IV 1758 Ceftriaxone Sodium/ 50 ML Q24HR 08/03 0900 AC 08/07 Dextrose IV 1000 Metronidazole/Sodium 100 ML Q8HR 08/02 1400 AC 08/07 Chloride IV 2107 Lorazepam 2 MG Q2H PRN 07/31 2230 AC 08/06 IV 0843 Atropine Sulfate 0.5 MG Q3MIN PRN 07/31 1215 AC IV Lidocaine HCl See Dose ONCE PRN 07/31 1215 AC Insts (1) IV Naloxone HCl 0.4 MG PRN PRN 07/31 1215 AC IV Ondansetron HCl See Dose Q6H PRN 07/31 0900 AC 08/04 Insts (2) IV 2230 Dose Instructions: (1)Lidocaine HCl: 1.5 MG/KG (2)Ondansetron HCl: 4 - 8 MG Allergies Coded Allergies: No Known Drug Allergy (06/26/08) Reconcile Medications Scheduled Medications Amitriptyline HCl (Amitriptyline HCl 25 MG) 25 MG TAB 50 MG PO QHS (Reported) Clonazepam (Clonazepam 1 MG) 1 MG TAB 1 MG PO QID (Reported) Scheduled PRN Medications Diphenhydramine HCl (Benadryl Allergy 25 MG) 25 MG TAB 25 MG PO PRN PRN ALLERGIES (Reported) Miscellaneous Medications Potassium Chloride (Klor-Con 10 Meq Tablet) 10 MEQ TAB (Reported) Physical Exam Vital Signs / I&Os Vital Signs Date Time Temp Pulse Resp B/P Pulse O2 O2 Flow FiO2 Ox Delivery Rate 08/08 0631 98.1 95 19 103/54 99 Room Air 08/08 0329 98.1 96 16 108/63 98 Room Air 08/08 0050 98.1 97 20 105/72 99 Room Air 08/07 1822 97.9 98 18 87/55 100 Room Air 08/07 1500 98.4 97 20 86/51 97 Room Air 08/07 1043 99.1 90 19 102/61 100 Room Air I&O 08/08 0000 08/07 1600 08/07 0800 Intake Total 1437 600 825 Output Total 875 1325 700 Balance 562 -725 125 General Appearance Alert, Oriented X3, Cooperative, No acute distress Lungs Clear to auscultation, Normal air movement Cardiovascular Regular rate and rhythm, Normal S1 and S2 Abdomen Normal bowel sounds, Soft, No tenderness, ileostomy present Extremities No cyanosis, No clubbing Neurological Cranial nerves intact, No lateralizing signs Psych/Mental Status Mental status normal, Mood normal LAB Results Laboratory Tests 08/08 08/08 0340 0340 Chemistry Plasma Sodium (136 - 145 mmol/L) 139 Plasma Potassium (3.5 - 5.1 mmol/L) 4.0 Plasma Chloride (98 - 107 mmol/L) 106 CO2 (Enzymatic) (21 - 32 mmol/L) 22 BUN (7 - 18 mg/dL) 3 Creatinine (0.6 - 1.3 mg/dL) 0.5 Est GFR ( Amer) (mL/min) >60 Est GFR (Non-Af Amer) (mL/min) >60 Glucose (70 - 110 mg/dL) 87 Plasma Calcium (8.5 - 10.1 mg/dL) 8.0 Plasma Magnesium (1.8 - 2.4 mg/dL) 1.6 Total Bilirubin (0.0 - 1.0 mg/dL) 0.3 AST (15 - 37 U/L) 18 ALT (12 - 78 U/L) 24 Alkaline Phosphatase (46 - 116 U/L) 43 Ammonia (11 - 32 umol/L) 19 Total Protein (6.4 - 8.2 g/dL) 6.0 Albumin (3.3 - 5.0 g/dL) 2.0 Hematology WBC (4.5 - 11.5 K/uL) 15.1 RBC (4.00 - 5.20 M/uL) 3.40 Hgb (12.0 - 16.0 gm/dL) 10.4 Hct (36.0 - 46.0 %) 31.3 MCV (80 - 100 fL) 92 MCH (26 - 34 pg) 31 RDW (11.6 - 14.8 %) 20.0 Neut % (Auto) (50 - 75 %) 81 Lymph % (Auto) (25 - 40 %) 9 [place] % (Auto) (3 - 14 %) 3 Eos % (Auto) (0 - 4 %) 0 Baso % (Auto) (0 - 2 %) 0 Band Neutrophils % (0 - 8 %) 7 Metamyelocytes % (0 - 1 %) 0 Myelocytes (0 - 1 %) 0 Other Cell Type 0 Plt Count, EDTA (150 - 400 K/uL) 451 Hypochromic-Microcytic 1+ Anisocytosis (manual) 2+ PUBS MCHC (31 - 37 g/dL) 33 Assessment and Plan Problem List 1. Peritonitis (acute) generalized Plan -Patient status post bowel perforation with peritonitis -Status post surgical intervention -Patient afebrile but slowly climbing WBC -Patient remains on Rocephin/Flagyl -We'll discuss with surgery regarding possible CT scan secondary to climbing WBC /intra-abdominal abscess -Monitor 2. Bowel perforation Plan -See above 3. Hypokalemia Plan -Patient with findings of hypokalemia -IV/by mouth supplementation -Monitor 4. Hypomagnesemia Plan -Patient with findings of hypomagnesemia -IV/by mouth supplementation 5. Nicotine dependence Status Chronic Onset Date Unknown Plan -Patient with nicotine dependence-smoking -Smoking cessation education -NicoDerm when necessary -Encourage smoking abstinence post discharge 6. Alcohol abuse Plan -Patient with history of alcohol abuse -No signs of alcohol withdrawal at this time -Monitor Current status: Fair, unstable Anticipated discharge date: Anticipated discharge in 1-2 days if no findings of intra-abdominal abscess Anticipated discharge placement: Home Patient care time: Time in chart review, patient interview, physical exam, CPOE, and care documentation: 35 mins Visit to patient today: 2 Complexity of care: High DVT prophylaxis: Lovenox 40 mg subcutaneous daily E&M Codes Rounding: Inpt-High/[id number]
[2016-08-08 06:31] VITALS: BP 103/54
[2016-08-08 12:36] VITALS: BP 103/62
[2016-08-08 15:03] VITALS: BP 85/48
--- NOTE | 2016-08-08 18:23 | DIAGNOSTIC IMAGING REPORT ---
PROCEDURE: ABDOMEN/PELVIS WITH CONTRAST CLINICAL INDICATION: History of bowel perforation, leukocytosis. TECHNIQUE: 85 ml of Isovue 300 were injected intravenously and axial images were obtained of the abdomen and pelvis with sagittal and coronal reformations. COMPARISON: 07/31/2016 FINDINGS: ABDOMEN: Small bilateral pleural effusions, left greater than right. Moderate bibasilar atelectatic changes. Normal sized heart. No hiatal hernia. The liver, decompressed gallbladder, adrenal glands, kidneys, pancreas and spleen are normal. The abdominal aorta is normal in its course and caliber. Moderate to heavy calcification. 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 There is a staple line in the mid sigmoid and fairly long Jose pouch. Small mesentery demonstrates diffuse hyperemia. Left lower abdominal and pelvic small bowel loops are mildly patulous, demonstrate diffuse wall thickening and mild hyperemia. The stomach is filled with fluid and medications. There is partially healed midline incision with a few small foci of subcutaneous fluid. PELVIS: There is a peripherally enhancing fluid collection measuring approximately 10.4 x 7.8 by 8.1 cm in the low posterior pelvis anterior to the rectum. Urinary bladder contains a small amount of gas, likely from recent instrumentation. Uterus, and ovaries are normal. Patent pelvic vasculature. No bulky adenopathy or suspicious mass. Intact osseous structures with degenerative disc endplate change on the left at L4-5. IMPRESSION: 1. Peripherally enhancing pelvic fluid collection suspicious for abscess or seroma. 2. Small bilateral effusions and atelectatic change. These could also be the etiology of leukocytosis. 3. Hyperemic small bowel mesentery and thickened small bowel wall diffusely. This raises the possibility of a diffuse inflammatory process such as Crohn disease, angioedema bowel loops, or malabsorptive process. Clinical and pathologic correlation recommended. 4. Status post colectomy with ileostomy formation. 5. Moderate to heavy mid to distal aortic and common iliac atherosclerotic calcification. 6. Discussed with Dr. Cali. All CT scans at this facility use dose modulation, iterative reconstruction, and/or weight-based dosing when appropriate to reduce radiation dose to as low as reasonably achievable.
[2016-08-08 19:11] VITALS: BP 98/57
[2016-08-09] VITALS (17 sets, daily range): BP systolic 65–121; BP diastolic 40–66
--- NOTE | 2016-08-09 07:36 | Progress Note ---
Subjective General Note Date: August 09, 2016 Admission Date: July 31, 2016 Hospital Day: 10 PCP: None Status: Inpatient, ACU Advanced Directive: FULL CODE Room: 303 Admission History: The patient is a 60-year-old white female with a significant past mental history of alcohol abuse/dependence, depression, insomnia, malignant melanoma, who presented to [facility] emergency department on the day of admission secondary to complaints of abdominal pain. [facility] ER evaluation was consistent with bowel perforation, pneumoperitoneum, and peritonitis. Secondary to the above, the patient was admitted by Denis Mercer M.D. for further evaluation and treatment. For other history present illness, past medical history, family history, social history, review of systems, and admission physical examination please see the patient's history and physical examination and ER visit note in the patient's medical record. Subjective: The patient states she is doing well today. Patient looking forward to drainage of abscess and discharge home. Persistent pain but stable. No nausea or vomiting. Patient requests: None except discharge by her birthday on the [birth year] Medications and Allergies Medications Current Medications Sig/Keyla Start time Last Medication Dose Route Stop Time Status Admin Piperacillin/ 50 ML Q6HR 08/09 0000 AC 08/09 Tazobactam/Dextrose IV 0630 Potassium Chloride 10 MEQ DAILY 08/06 0900 AC 08/08 PO 0937 Pantoprazole Sodium 40 MG DAILY@08/06 0600 AC 08/09 Sesquihydrate PO 0610 Amitriptyline HCl 50 MG QHS 08/05 2100 AC 08/08 PO 2024 Oxycodone/ 1 TAB Q4H PRN 08/05 1245 AC 08/06 Acetaminophen PO 2154 Clonazepam 1 MG QID 08/05 1200 AC 08/09 PO 0610 Nicotine 7 MG QAM 08/05 0930 AC 08/08 TOP 0937 Magnesium Chloride 535 MG TID 08/04 2200 AC 08/09 PO 0610 Dextrose/Sodium 1,000 ML ASDIRECTED 08/04 1900 AC 08/09 Chloride/Electrolyt IV 0227 Metronidazole/Sodium 100 ML Q8HR 08/02 1400 AC 08/09 Chloride IV 0531 Lorazepam 2 MG Q2H PRN 07/31 2230 AC 08/06 IV 0843 Atropine Sulfate 0.5 MG Q3MIN PRN 07/31 1215 AC IV Lidocaine HCl See Dose ONCE PRN 07/31 1215 AC Insts (1) IV Naloxone HCl 0.4 MG PRN PRN 07/31 1215 AC IV Ondansetron HCl See Dose Q6H PRN 07/31 0900 AC 08/04 Insts (2) IV 2230 Dose Instructions: (1)Lidocaine HCl: 1.5 MG/KG (2)Ondansetron HCl: 4 - 8 MG Allergies Coded Allergies: No Known Drug Allergy (06/26/08) Reconcile Medications Scheduled Medications Amitriptyline HCl (Amitriptyline HCl 25 MG) 25 MG TAB 50 MG PO QHS (Reported) Clonazepam (Clonazepam 1 MG) 1 MG TAB 1 MG PO QID (Reported) Scheduled PRN Medications Diphenhydramine HCl (Benadryl Allergy 25 MG) 25 MG TAB 25 MG PO PRN PRN ALLERGIES (Reported) Miscellaneous Medications Potassium Chloride (Klor-Con 10 Meq Tablet) 10 MEQ TAB (Reported) Physical Exam Vital Signs / I&Os Vital Signs Date Time Temp Pulse Resp B/P Pulse O2 O2 Flow FiO2 Ox Delivery Rate 08/09 0651 97.2 89 19 89/55 97 Room Air 08/09 0204 98.1 91 20 121/65 99 Room Air 08/08 2000 Room Air 0.0 08/08 1911 98.1 90 20 98/57 100 Room Air 08/08 1537 18 98 08/08 1503 97.3 85/48 Room Air 08/08 1236 98.1 87 19 103/62 99 Room Air 08/08 0930 Room Air I&O 08/09 0000 08/08 1600 08/08 0800 Intake Total 1745 861 Output Total 100 1890 Balance 1645 -1029 General Appearance Alert, Oriented X3, Cooperative, No acute distress Lungs Clear to auscultation, Normal air movement Cardiovascular Regular rate and rhythm, Normal S1 and S2 Abdomen Normal bowel sounds, Soft, questionable minimal tenderness lower quadrants Extremities No cyanosis, No clubbing Neurological Cranial nerves intact, No lateralizing signs Psych/Mental Status Mental status normal, Mood normal LAB Results Laboratory Tests 08/09 0425 Hematology WBC (4.5 - 11.5 K/uL) 13.0 RBC (4.00 - 5.20 M/uL) 3.57 Hgb (12.0 - 16.0 gm/dL) 10.9 Hct (36.0 - 46.0 %) 33.1 MCV (80 - 100 fL) 93 MCH (26 - 34 pg) 31 RDW (11.6 - 14.8 %) 20.0 Neut % (Auto) (50 - 75 %) 83 Lymph % (Auto) (25 - 40 %) 8 [place] % (Auto) (3 - 14 %) 7 Eos % (Auto) (0 - 4 %) 0 Baso % (Auto) (0 - 2 %) 0 Band Neutrophils % (0 - 8 %) 2 Metamyelocytes % (0 - 1 %) 0 Myelocytes (0 - 1 %) 0 Other Cell Type 0 Plt Count, EDTA (150 - 400 K/uL) 435 PUBS MCHC (31 - 37 g/dL) [address] Scan Abdomen/Pelvis IMPRESSION: 1. Peripherally enhancing pelvic fluid collection suspicious for abscess or seroma. 2. Small bilateral effusions and atelectatic change. These could also be the etiology of leukocytosis. 3. Hyperemic small bowel mesentery and thickened small bowel wall diffusely. This raises the possibility of a diffuse inflammatory process such as Crohn disease, angioedema bowel loops, or malabsorptive process. Clinical and pathologic correlation recommended. 4. Status post colectomy with ileostomy formation. 5. Moderate to heavy mid to distal aortic and common iliac atherosclerotic calcification. 6. Discussed with Dr. Cali. Dictated by: MARIELA PLATA MD D: TRACI;08/08/16 1106 Assessment and Plan Problem List 1. Intra-abdominal abscess Status Acute Onset Date Unknown Plan -Patient with pelvic abscess as noted on CT scan. -Patient to undergo percutaneous drainage of abscess this a.m. -Antimicrobial therapy modified to Rocephin/Zosyn -Monitor 2. Peritonitis (acute) generalized Plan -Patient admitted with bowel perforation with peritonitis -Status post surgical intervention Dr. Jordan -Patient with complications of pelvic abscess -Antimicrobials modified as noted above -Persistent leukocytosis -Monitor with percutaneous drainage of abscess and adjustments in antimicrobial therapy 3. Bowel perforation Plan -See above -Stable than postoperative abscess pelvic region 4. Hypokalemia Plan -Patient with history of hypokalemia -Resolved -Potassium 4.0 yesterday -Monitor 5. Hypomagnesemia Plan -Patient with findings of hypomagnesemia -Magnesium level pending -IV/by mouth supplementation as necessary. 6. Nicotine dependence Status Chronic Onset Date Unknown Plan -Patient with history of nicotine dependence-smoking -NicoDerm patch -Encourage smoking abstinence post discharge -Smoking cessation education 7. Alcohol abuse Plan -Stable -No signs of withdrawal -Encourage alcohol abstinence post discharge Current status: Fair, unstable Anticipated discharge date: Anticipated discharge 3-4 days Anticipated discharge placement: Home Patient care time: Time in chart review, patient interview, physical exam, CPOE, and care documentation: 35 mins Visit to patient today: 2 Complexity of care: High DVT prophylaxis: SCD, change to Lovenox postprocedural today E&M Codes Rounding: Inpt-High/07088
--- NOTE | 2016-08-09 13:45 | DIAGNOSTIC IMAGING REPORT ---
PROCEDURE: CT RETRO/PERITONEAL DRAINAGE INDICATION: pelvic abscess TECHNIQUE: Written informed consent was obtained from the patient prior to the procedure. Risks discussed included but were not limited to bleeding, infection, injury to adjacent structures, pain, need for further procedure and allergic reaction. It was agreed to proceed. Conscious sedation was provided by anesthesia. Right decubitus position on the CT table. Preliminary CT imaging demonstrated moderate size low pelvic posterior fluid collection. An appropriate skin entry site was chosen and marked. The skin was prepped and draped in the usual sterile fashion. Skin and subcutaneous tissue was anesthetized thoroughly with 1% lidocaine. Under intermittent CT guidance, a 16-gauge angiocath was directed into the fluid collection. A 0.035 guide wire was passed. The tract was dilated to accommodate a 10-Eritrean locking pigtail catheter which was placed via Seldinger technique. The pigtail was locked in place, a fixed to the skin, and connected to bulb suction. A sample of fluid was sent to the lab for culture and Gram stain. A sterile bandage was applied. The patient tolerated the procedure well and there were no immediate complications. The patient was taken back to her room for recovery accompanied by anesthesia. COMPARISON: 08/08/2016 FINDINGS: Serous fluid in the pelvic fluid collection. IMPRESSION: 1. Successful CT-guided 10-Eritrean drain placement in the low pelvic fluid collection, left to INOCENCIA bulb suction. 2. Gram stain and culture are pending.
--- NOTE | 2016-08-09 13:45 | DIAGNOSTIC IMAGING REPORT ---
PROCEDURE: CT RETRO/PERITONEAL DRAINAGE INDICATION: pelvic abscess TECHNIQUE: Written informed consent was obtained from the patient prior to the procedure. Risks discussed included but were not limited to bleeding, infection, injury to adjacent structures, pain, need for further procedure and allergic reaction. It was agreed to proceed. Conscious sedation was provided by anesthesia. Right decubitus position on the CT table. Preliminary CT imaging demonstrated moderate size low pelvic posterior fluid collection. An appropriate skin entry site was chosen and marked. The skin was prepped and draped in the usual sterile fashion. Skin and subcutaneous tissue was anesthetized thoroughly with 1% lidocaine. Under intermittent CT guidance, a 16-gauge angiocath was directed into the fluid collection. A 0.035 guide wire was passed. The tract was dilated to accommodate a 10-Micronesian locking pigtail catheter which was placed via Seldinger technique. The pigtail was locked in place, a fixed to the skin, and connected to bulb suction. A sample of fluid was sent to the lab for culture and Gram stain. A sterile bandage was applied. The patient tolerated the procedure well and there were no immediate complications. The patient was taken back to her room for recovery accompanied by anesthesia. COMPARISON: 08/08/2016 FINDINGS: Serous fluid in the pelvic fluid collection. IMPRESSION: 1. Successful CT-guided 10-Micronesian drain placement in the low pelvic fluid collection, left to INOCENCIA bulb suction. 2. Gram stain and culture are pending.
[2016-08-10 02:12] VITALS: BP 103/60
--- NOTE | 2016-08-10 06:44 | Progress Note ---
Subjective General Note Date: August 10, 2016 Admission Date: July 31, 2016 Hospital Day: 11 PCP: None Status: Inpatient, ACU Advanced Directive: FULL CODE Room: 303 Admission History: The patient is a 60-year-old white female with a significant past mental history of alcohol abuse/dependence, depression, insomnia, malignant melanoma, who presented to [facility] emergency department on the day of admission secondary to complaints of abdominal pain. [facility] ER evaluation was consistent with bowel perforation, pneumoperitoneum, and peritonitis. Secondary to the above, the patient was admitted by Denis Mercer M.D. for further evaluation and treatment. For other history present illness, past medical history, family history, social history, review of systems, and admission physical examination please see the patient's history and physical examination and ER visit note in the patient's medical record. Subjective: The patient states she is doing well today. No complaints of abdominal pain. No nausea or vomiting. Patient has done well with maintenance of her ileostomy. Patient requests: None other than discharge in a.m. Medications and Allergies Medications Current Medications Sig/Keyla Start time Last Medication Dose Route Stop Time Status Admin Potassium Chloride 20 MEQ DAILY 08/10 0900 AC PO Ampicillin Sodium/ 3,000 MG Q6HR 08/09 1800 AC 08/10 Sulbactam Sodium IV 0527 Sodium Chloride 100 ML Ampicillin Sodium/ 3,000 MG Q6HR 08/09 1800 CAN Sulbactam Sodium IV Sodium Chloride 100 ML Pantoprazole Sodium 40 MG DAILY@0600 08/06 0600 AC 08/10 Sesquihydrate PO 0527 Amitriptyline HCl 50 MG QHS 08/05 2100 AC 08/09 PO 1840 Oxycodone/ 1 TAB Q4H PRN 08/05 1245 AC 08/09 Acetaminophen PO 0802 Clonazepam 1 MG QID 08/05 1200 AC 08/10 PO 0527 Nicotine 7 MG QAM 08/05 0930 AC 08/09 TOP 0801 Magnesium Chloride 535 MG TID 08/04 2200 AC 08/10 PO 0527 Dextrose/Sodium 1,000 ML ASDIRECTED 08/04 1900 AC 08/10 Chloride/Electrolyt IV 0249 Lorazepam 2 MG Q2H PRN 07/31 2230 AC 08/06 IV 0843 Atropine Sulfate 0.5 MG Q3MIN PRN 07/31 1215 AC IV Lidocaine HCl See Dose ONCE PRN 07/31 1215 AC Insts (1) IV Naloxone HCl 0.4 MG PRN PRN 07/31 1215 AC IV Ondansetron HCl See Dose Q6H PRN 07/31 0900 AC 08/04 Insts (2) IV 2230 Dose Instructions: (1)Lidocaine HCl: 1.5 MG/KG (2)Ondansetron HCl: 4 - 8 MG Allergies Coded Allergies: No Known Drug Allergy (06/26/08) Reconcile Medications Scheduled Medications Amitriptyline HCl (Amitriptyline HCl 25 MG) 25 MG TAB 50 MG PO QHS (Reported) Clonazepam (Clonazepam 1 MG) 1 MG TAB 1 MG PO QID (Reported) Scheduled PRN Medications Diphenhydramine HCl (Benadryl Allergy 25 MG) 25 MG TAB 25 MG PO PRN PRN ALLERGIES (Reported) Miscellaneous Medications Potassium Chloride (Klor-Con 10 Meq Tablet) 10 MEQ TAB (Reported) Physical Exam Vital Signs / I&Os Vital Signs Date Time Temp Pulse Resp B/P Pulse O2 O2 Flow FiO2 Ox Delivery Rate 08/10 0212 98.8 96 15 103/60 98 Room Air 0.0 08/09 2222 98.2 100 14 79/40 98 Room Air 0.0 08/09 1924 84/47 07/ 1803 97.5 52 20 113/50 93 Room Air 08/09 1722 88 84/66 07/ 1642 86 81/45 07/ 1615 83 82/50 07/ 1527 97.0 92 16 87/49 100 Room Air 07 1454 76 79/40 07/ 1427 99 72/47 98 / 1425 100 77/49 99 07/01 1346 88 17 84/53 99 Room Air 07 1318 84 16 115/62 95 07/01 1315 91/50 07/01 1313 98.1 93 16 86/51 96 Room Air 08/09 1300 65/50 07/01 0651 97.2 89 19 89/55 97 Room Air I&O / 0000 08/09 1600 08/09 0800 Intake Total 1403 589 561 Output Total 1120 475 400 Balance 283 114 161 General Appearance Alert, Oriented X3, Cooperative, No acute distress Lungs Clear to auscultation, Normal air movement Cardiovascular Regular rate and rhythm, Normal S1 and S2, No murmurs, gallops, rubs Abdomen Normal bowel sounds, Soft, No tenderness, No guarding, abscess drain in place. Ileostomy present. Neurological Cranial nerves intact, No lateralizing signs Psych/Mental Status Mental status normal, Mood normal LAB Results Laboratory Tests 08/10 0515 Chemistry Plasma Sodium (136 - 145 mmol/L) 139 Plasma Potassium (3.5 - 5.1 mmol/L) 3.9 Plasma Chloride (98 - 107 mmol/L) 106 CO2 (Enzymatic) (21 - 32 mmol/L) 24 BUN (7 - 18 mg/dL) 3 Creatinine (0.6 - 1.3 mg/dL) 0.5 Est GFR ( Amer) (mL/min) >60 Est GFR (Non-Af Amer) (mL/min) >60 Glucose (70 - 110 mg/dL) 104 Plasma Calcium (8.5 - 10.1 mg/dL) 7.5 Plasma Magnesium (1.8 - 2.4 mg/dL) 1.6 Hematology WBC (4.5 - 11.5 K/uL) 11.2 RBC (4.00 - 5.20 M/uL) 3.16 Hgb (12.0 - 16.0 gm/dL) 9.6 Hct (36.0 - 46.0 %) 29.5 MCV (80 - 100 fL) 93 MCH (26 - 34 pg) 30 RDW (11.6 - 14.8 %) 20.0 Neut % (Auto) (50 - 75 %) 79 Lymph % (Auto) (25 - 40 %) 13 [place] % (Auto) (3 - 14 %) 6 Eos % (Auto) (0 - 4 %) 2 Baso % (Auto) (0 - 2 %) 0 Band Neutrophils % (0 - 8 %) 0 Metamyelocytes % (0 - 1 %) 0 Myelocytes (0 - 1 %) 0 Other Cell Type 0 Plt Count, EDTA (150 - 400 K/uL) 447 PUBS MCHC (31 - 37 g/dL) 33 Microbiology Date/Time Procedure - Status Source Growth 08/09 1300 Deep Wound Culture - RES UNK/NG 08/09 1300 Deep Wound Culture - RES UNK/NG 08/09 1300 Gram Stain - RES UNK/NG Assessment and Plan Problem List 1. Intra-abdominal abscess Status Acute Onset Date Unknown Plan -Status post abscess drain placement yesterday -Minimal drainage overnight -Trained patient in maintenance of drain -Possible discharge in a.m. -Switch patient from Unasyn to Augmentin on discharge. 2. Peritonitis (acute) generalized Plan -Much improved -Continue Unasyn until discharge -WBC improved dropping from 15.1 (08/08) to 11.2 today -Patient afebrile -Probable discharge in a.m. 3. Bowel perforation Plan -See about -Status post surgical repair -probable discharge in a.m. with outpatient follow-up with Dr. Jordan 4. Hypokalemia Plan -Resolved -Potassium 3.9 today 5. Hypomagnesemia Plan -Mild hypomagnesemia -Magnesium 1.6 -Slow-Mag one by mouth 3 times a day 6. Nicotine dependence Status Chronic Onset Date Unknown Plan -Stable -Encourage smoking abstinence post discharge -NicoDerm patch when necessary -Smoking cessation education provided 7. Alcohol abuse Plan -Not problematic -Encourage alcohol abstinence post discharge -No signs of alcohol withdrawal Current status: Fair, improved Anticipated discharge date: Anticipated discharge in a.m. Anticipated discharge placement: Home Patient care time: Time in chart review, patient interview, physical exam, CPOE, and care documentation: 25 mins Visit to patient today: 1 Complexity of care: Moderate DVT prophylaxis: SCD E&M Codes Rounding: Inpt-Moderate/[id number]
[2016-08-10 06:45] VITALS: BP 92/56
[2016-08-10 11:05] VITALS: BP 92/58
[2016-08-10 15:01] VITALS: BP 86/59
[2016-08-10 18:16] VITALS: BP 100/60
[2016-08-10 22:17] VITALS: BP 96/52
[2016-08-11 04:16] VITALS: BP 90/57
[2016-08-11 07:02] VITALS: BP 107/67
--- NOTE | 2016-08-11 07:57 | Discharge Summary ---
Discharge Summary Report Admit Date 07/31/16 Discharge Date 08/11/16 Admission Diagnosis 1. Peritonitis 2. Bowel perforation 3. Hypokalemia 4. Generalized anxiety disorder Discharge Diagnosis 1. Peritonitis 2. Bowel perforation 3. Hypokalemia 4. Generalized anxiety disorder 5. Intra-abdominal abscess 6. Nicotine dependence 7. Hypomagnesemia Brief History The patient is a 60-year-old white female with a significant past mental history of alcohol abuse/dependence, depression, insomnia, malignant melanoma, who presented to [facility] emergency department on the day of admission secondary to complaints of abdominal pain. [facility] ER evaluation was consistent with bowel perforation, pneumoperitoneum, and peritonitis. Secondary to the above, the patient was admitted by Denis Mercer M.D. for further evaluation and treatment. For other history present illness, past medical history, family history, social history, review of systems, and admission physical examination please see the patient's history and physical examination and ER visit note in the patient's medical record. Hospital Course The following problems and their management were noted during the patient's hospitalization: 1. Peritonitis The patient presented with findings of bowel perforation with associated peritonitis. She underwent laparotomy with subsequent ileostomy. The patient was treated with IV antimicrobials but developed complications of pelvic abscess. This required percutaneous drainage. Patient was discharged home with percutaneous drain in place to follow-up with Dr. Jordan this week. Patient discharged on Augmentin 875 mg by mouth twice a day. The patient was doing well , afebrile with improved white count. Patient felt ready for discharge at this time. 2. Bowel perforation See above. See surgical note regarding bowel perforation and subsequent ileostomy. 3. Hypokalemia The patient was noted to have hypokalemia during her hospital stay. This normalized by the day of discharge. She was discharged on KCl 20 mEq by mouth daily. Outpatient follow-up with PCP. 4. Generalized anxiety disorder Stable outpatient medical regimen. Continue clonazepam 1 mg by mouth 4 times a day. Follow-up with PCP this week 5. Intra-abdominal abscess See above. Status post drain. Patient treated with Augmentin 875 mg by mouth twice a day. Culture negative on discharge. Follow-up with Dr. Jordan this week. 6. Nicotine dependence Patient with history of nicotine dependence-smoking. Smoking cessation education given. Patient encouraged to follow a smoking abstinence program post discharge. NicoDerm patch as needed. 7. Hypomagnesemia Patient with findings of hypomagnesemia during her hospital stay. Patient discharged on magnesium supplementation in the form of Mag 64 one by mouth twice a day. General Appearance Alert, Oriented X3, Cooperative, No acute distress Lungs Clear to auscultation, Normal air movement Cardiovascular Regular Rate, Normal S1, Normal S2 Abdomen Normal bowel sounds, Soft, No tenderness, ileostomy present. Abscess drain in place Neurological Strength at 5/5 X4 ext, Cranial nerves 3-12 NL Psych/Mental Status Mental status NL, Mood NL, . . Lab/Imaging No labs on dc Discharge Instructions/Meds For other recommendations regarding discharge diet, activity, followup, and discharge medications please see the patient's discharge instructions. Discharge condition: Good, improved Greater than 30 min. was spent in the patient's discharge preparation including discharge interview and physical examination, progress note, discharge instructions, and discharge summary The patient was interviewed and examined on the day of discharge. E&M Codes Discharge: Inpt >30 min spent/[id number]
[2016-08-11] MEDS ORDERED: MAG6464 MG PO (08:02)
[2016-08-11] MEDS ORDERED: AUGMENTIN875 MG PO (08:02)
--- NOTE | 2016-08-11 08:05 | Provider's Discharge Care Plan ---
Problem, Goal, Plan Problem List 1. Peritonitis (acute) generalized Goals: Improve disease control, Prevent disease progress Instructions: Follow up as directed, Take meds as directed, Follow-up with Dr. Jordan this week. 2. Intra-abdominal abscess Goals: Improve disease control, Prevent disease progress Instructions: Follow up as directed, Take meds as directed, Care for abscess drain as described by nursing staff at time of discharge. Follow-up with Dr. Jordan this week.
== END 2016-08-11 13:30 | disposition home health service (06) | DRG 329 ==
LOC: ED SRH 00:05 → TRANS SRH 04:53 → CC SRH 06:55 → ACUTE2 SRH 08-05 18:31 → CC SRH 08-05 18:32
PROVIDERS: Specialist; ADMIT Family Medicine
PROC: 0DBB0ZZ Excision of Ileum, Open Approach (ICD-10-PCS; principal; 2016-07-31 07:00)
PROC: 3E0M05Z Introduction of Adhesion Barrier into Peritoneal Cavity, Open Approach (ICD-10-PCS; principal; 2016-07-31 07:00)
PROC: 0WJG4ZZ Inspection of Peritoneal Cavity, Percutaneous Endoscopic Approach (ICD-10-PCS; principal; 2016-07-31 07:00)
PROC: 0DBN0ZZ Excision of Sigmoid Colon, Open Approach (ICD-10-PCS; principal; 2016-07-31 07:00)
PROC: 0D1B0Z4 Bypass Ileum to Cutaneous, Open Approach (ICD-10-PCS; principal; 2016-07-31 07:00)
PROC: 02HV33Z Insertion of Infusion Device into Superior Vena Cava, Percutaneous Approach (ICD-10-PCS; 2016-08-01)
PROC: 0W9G30Z Drainage of Peritoneal Cavity with Drainage Device, Percutaneous Approach (ICD-10-PCS; 2016-08-09)
DX: K63.1 Perforation of intestine (nontraumatic) (principal); K65.0 Generalized (acute) peritonitis; B96.89 Other specified bacterial agents as the cause of diseases classified elsewhere; Z53.31 Laparoscopic surgical procedure converted to open procedure; K65.1 Peritoneal abscess; F10.231 Alcohol dependence with withdrawal delirium; Z90.49 Acquired absence of other specified parts of digestive tract; E87.6 Hypokalemia; E83.42 Hypomagnesemia; R34 Anuria and oliguria; E87.70 Fluid overload, unspecified; F41.9 Anxiety disorder, unspecified; F17.210 Nicotine dependence, cigarettes, uncomplicated

== ENCOUNTER 2016-08-22 12:35 | Outpatient (CLI) | payer BC, OTHER ==
[~2016-08-22 12:35] MED LIST: AMITRIPTYLINE H25 MG PO; AUGMENTIN875 MG PO; BENADRYL ALLERG25 M1 PO; CLONAZEPAM1 MG PO; KLOR-CON 1010 MEQ PO; MAG6464 MG PO
--- NOTE | 2016-08-22 14:46 | DIAGNOSTIC IMAGING REPORT ---
PROCEDURE: ABDOMEN/PELVIS WITH CONTRAST CLINICAL INDICATION: F/U ABD SURGERY, ABSCESS, PULL DRAIN IF ABSCESS RESOLVED TECHNIQUE: 90 ml of Isovue 300 were injected intravenously and axial images were obtained of the abdomen and pelvis with sagittal and coronal reformations. COMPARISON: 08/08/2016 FINDINGS: ABDOMEN: Right subpleural calcified granuloma. Otherwise clear lung bases. Normal sized heart. No hiatal hernia. Decompressed gallbladder. The liver, adrenal glands, kidneys, pancreas and spleen are normal. The abdominal aorta is normal in its course and caliber. Heavy mid to distal aortic and proximal common iliac atherosclerosis. There are no suspicious calcifications, retroperitoneal adenopathy or masses. The stomach, upper bowel loops, and mesentery are normal. Right lower quadrant ileostomy. PELVIS: There is an irregular, mildly peripherally enhancing fluid collection in the posterior pelvis measuring approximately 4.3 x 1.6 x 1.5 cm. There is a pigtail drain is within the left aspect of this fluid collection. The fluid collection has considerably decreased in size since the CT prior to drainage. Near total colectomy. There is a long Jose's pouch in the left posterior pelvis. Mildly patulous small bowel loops in the pelvis demonstrate occasional air fluid levels. The uterus, ovaries, urinary bladder, and pelvic vessels are normal. Low midline abdominal pelvic incision is partially opened with an overlying bandage. Osseous structures are intact. IMPRESSION: 1. Interval decrease in size of pelvic fluid collection. The drain remains within this collection, will be irrigated, and left in place. Follow-up in 1 week recommended. 2. Mild pelvic small bowel ileus. 3. Status post total colectomy with Jose's pouch. 4. Heavy atherosclerosis. All CT scans at this facility use dose modulation, iterative reconstruction, and/or weight-based dosing when appropriate to reduce radiation dose to as low as reasonably achievable.
== END 2016-08-22 23:00 ==
LOC: CT SRH 12:35
DX: Z90.49 Acquired absence of other specified parts of digestive tract (principal); Z93.2 Ileostomy status; I70.90 Unspecified atherosclerosis